=== PATIENT | male | born 1975 | race Caucasian/White ===

== ENCOUNTER → 2019-05-15 10:23 | Outpatient (BNVA) | payer MEDICAID, SELFPAY | PROVIDERS: PCP Nurse Practitioner Family; Visit Provider Nurse Practitioner | DX: M51.16 Intervertebral disc disorders with radiculopathy, lumbar region (principal); M25.511 Pain in right shoulder; F17.220 Nicotine dependence, chewing tobacco, uncomplicated; Z79.891 Long term (current) use of opiate analgesic | CPT/HCPCS: 99214 ==

== ENCOUNTER 2019-05-29 09:05 | Outpatient (CLI) | payer MEDICAID, SELFPAY ==
--- NOTE | 2019-05-29 09:23 | MR_ITS ---
WS: [id number] MRI LUMBAR SPINE NONCONTRAST TECHNIQUE: Sagittal T1, T2 and STIR imaging. Axial T1 and T2 imaging. CLINICAL INFORMATION: INCREASED BACK PAIN FINDINGS: Mild Lumbar curve. No acute compression. Slight retrolisthesis L2 on L3. No high-grade central canal stenosis. L1-L2: Normal. L2-L3: Slight retrolisthesis L2 on L3. Mild disc bulging with slight effacement of the ventral thecal sac. Narrowing of the subarticular recess bilaterally left greater than right. Mild facet arthropath y. Mild to moderate left and mild right foraminal narrowing. L3-L4: Mild annular bulging. Tiny right foraminal protrusion with mild right and no significant left foraminal narrowing. Moderate facet arthropathy. L4-L5: Mild disc bulging with slight effacement of ventral thecal sac. Narrowing of the subarticular recess bilaterally. Mild right greater than left foraminal narrowing. Moderate facet arthropathy. Lef t facet edema. L5-S1: L5 is partially sacralized. No significant spinal canal or foraminal narrowing. Mild facet art hropathy. Visualized pelvic bony structures: Normal. Paravertebral soft tissues: Normal. MR/MR lumbar spine wo con* [id number] IMPRESSION: 1. Mild lumbar curve. No acute compression. No high-grade central canal stenos is. 2. Slight retrolisthesis L2 on L3 with narrowing of the left greater than righ t subarticular recess. Recommend correlation for left L3 nerve root symptoms. 3. Small bilateral foraminal protrusions L2-3 with left greater than right for aminal narrowing. 4. Tiny right foraminal protrusion L3-4 slightly contacts the exiting right L3 nerve root. 5. Disc bulging L4-5 with slight effacement of ventral thecal sac and mild rig ht foraminal narrowing. 6. Asymmetric moderate left facet arthropathy L4-5 with a small facet effusion . 7. Small disc protrusions are visualized in the lower thoracic spine on the sc out imaging at T6-T7, T7-T8, and T8-T9. Additional small protrusions in the cer vical spine at C3-C4 C5-C6 and C6-C7.
--- NOTE | 2019-05-29 10:15 | XR_ITS ---
WS: [id number] LUMBAR SPINE FLEXION AND EXTENSION TECHNIQUE: 3 views of the lumbar spine: Lateral neutral, flexion, and extension views. CLINICAL INFORMATION: Assess stability COMPARISON: None. FINDINGS: 7 mm retrolisthesis L2 on L3 in the neutral position. This decreases on flexion to 4 mm. This returns to 6.3 mm in extension. Disc space narrowing worse L5-S1. Moderate facet arthropathy L5-S1. XR/XR lumbar spine f/e only [id number] IMPRESSION: Flexion instability at L2-3 described above.
== END 2019-05-29 09:06 | disposition home or self-care (01) ==
LOC: RADWPI 09:10
PROVIDERS: PCP Nurse Practitioner; Visit Provider Nurse Practitioner
DX: M53.2X6 Spinal instabilities, lumbar region (principal); M51.26 Other intervertebral disc displacement, lumbar region; M51.24 Other intervertebral disc displacement, thoracic region; M50.21 Other cervical disc displacement, high cervical region
CPT/HCPCS: 72120; 72148

== ENCOUNTER 2019-07-15 08:45 | Outpatient (CLI) | payer MEDICAID, SELFPAY ==
--- NOTE | 2019-07-15 08:51 | IR_ITS ---
WS: [id number] MYELOGRAM LUMBAR SPINE Fluoroscopic guided lumbar myelogram CLINICAL INFORMATION: Spondylolithesis COMPARISON: None. TECHNIQUE: The procedure, including risks, benefits, and complications, were discussed with the patie nt who agreed to proceed. A timeout was performed to confirm correct patient, procedure, and site. Using sterile technique, the patient was prepped and draped in the usual sterile fashion. After admin istration of local anesthesia using 1% preservative-free lidocaine and using fluoroscopic guidance, a 22-gauge spinal needle was advanced into the subarachnoid space at the right L4-5 level. Subsequentl y 13 cc of Omnipaque 240 was administered into the thecal sac. The needle was removed and hemostasis was achieved. Spot fluoroscopic images were obtained. FLUOROSCOPIC TIME: 0.5 minutes. Spot fluoroscopic images demonstrate 5 mm retrolisthesis L2 on L3. This is unchanged in flexion and d ecreases slightly in extension to 4.[address] myelogram report for additional detail. IR/IR myel[place] lumbar [id number] IMPRESSION: 1. Uncomplicated L4-5 lumbar myelogram. 2. 5 mm retrolisthesis L2 on L3 with mild instability in extension. 3. Please see CT myelogram report for additional anatomic detail.
--- NOTE | 2019-07-15 08:51 | CT_ITS ---
WS: [id number] CT LUMBAR SPINE TECHNIQUE: Contrast-enhanced CT of the lumbar spine with coronal and sagittal reformatted images. CLINICAL INFORMATION: Spondylolithesis COMPARISON: None. DLP: 2020.[address] scans at [facility] use at least one of these dose optimization techniques: automat ed exposure control; mA and/or kV adjustment per patient size (includes targeted exams where dose is matched to clinical indication); or iterative reconstruction. FINDINGS: Mild lumbar curve. No acute compression. No high-grade central canal stenosis. 5 mm retrolisthesis L2 on L3. L1-L2: Trace retrolisthesis L1 on L2. No significant disc bulging. Spinal canal and foramen are paten t. L2-L3: 5 mm retrolisthesis L2 on L3. Narrowing of the subarticular recess bilaterally. Small bilatera l foraminal protrusions with mild bilateral foraminal narrowing. Mild facet arthropathy. L3-L4: Right eccentric disc osteophyte foraminal protrusion with mild right foraminal narrowing. Encr oachment on the exiting right L3 nerve root. Spinal canal and foramen are patent. Mild facet arthropa thy. L4-L5: Mild disc bulging with a tiny shallow central protrusion. Contact of the traversing L5 nerve r oots bilaterally left greater than right. Moderate left facet arthropathy. Mild to moderate left and mild right foraminal narrowing. L5-S1: L5 is partially sacralized on the left. Spinal canal is patent. Foramen are patent. Visualized pelvic bony structures: Normal. Paravertebral soft tissues: Normal. CT/CT lumbar spine w con [id number] IMPRESSION: 1. Mild lumbar curve. No acute compression. 5 mm retrolisthesis L2 on L3. 2. Disc bulging L2-3 with narrowing of the subarticular recess bilaterally. Sm all bilateral foraminal protrusions with mild right greater than left foraminal narrowing. 3. Mild right L3-4 foraminal narrowing. 4. Shallow central protrusion L4-5 with impingement on the left greater than r ight subarticular recess. Recommend correlation left L5 nerve root symptoms. As ymmetric left L4-5 facet arthropathy with mild to moderate left and mild right foraminal narrowing. 5. L5 is partially sacralized on the left.
[2019-07-15] MEDS: iohexol 240 mg/mL 50 mL Btl INTRATHECA (09:40)
== END 2019-07-15 08:46 | disposition home or self-care (01) ==
LOC: RADWPI 08:48
PROVIDERS: PCP Nurse Practitioner Family; Visit Provider Licensed Practical Nurse
DX: M43.16 Spondylolisthesis, lumbar region (principal); M51.86 Other intervertebral disc disorders, lumbar region; M51.26 Other intervertebral disc displacement, lumbar region
CPT/HCPCS: 62304; 72120; 72132; J2001; Q9966

== ENCOUNTER → 2019-09-17 10:10 | Outpatient (BNVA) | payer MEDICAID, SELFPAY | PROVIDERS: PCP Nurse Practitioner Family; Visit Provider Anesthesiology | DX: M48.062 Spinal stenosis, lumbar region with neurogenic claudication (principal); M51.16 Intervertebral disc disorders with radiculopathy, lumbar region; M43.16 Spondylolisthesis, lumbar region; M51.17 Intervertebral disc disorders with radiculopathy, lumbosacral region; M25.511 Pain in right shoulder; Z79.891 Long term (current) use of opiate analgesic | CPT/HCPCS: 99214 ==

== ENCOUNTER → 2019-10-22 09:14 | Outpatient (BNVA) | payer MEDICAID, SELFPAY | PROVIDERS: PCP Nurse Practitioner Family; Visit Provider Anesthesiology | DX: M51.16 Intervertebral disc disorders with radiculopathy, lumbar region (principal); M51.17 Intervertebral disc disorders with radiculopathy, lumbosacral region; M43.16 Spondylolisthesis, lumbar region; M48.062 Spinal stenosis, lumbar region with neurogenic claudication; Z79.891 Long term (current) use of opiate analgesic | CPT/HCPCS: 62323; J1040; J3490 ==

== ENCOUNTER → 2019-11-17 09:24 | Outpatient (BNVA) | payer MEDICAID, SELFPAY | PROVIDERS: PCP Nurse Practitioner Family; Visit Provider Anesthesiology | DX: M51.16 Intervertebral disc disorders with radiculopathy, lumbar region (principal); M48.062 Spinal stenosis, lumbar region with neurogenic claudication; M43.16 Spondylolisthesis, lumbar region; M51.17 Intervertebral disc disorders with radiculopathy, lumbosacral region; Z72.0 Tobacco use; Z79.891 Long term (current) use of opiate analgesic | CPT/HCPCS: 99214 ==

== ENCOUNTER → 2019-11-20 10:29 | Outpatient (BNVA) | payer MEDICAID, SELFPAY | PROVIDERS: PCP Nurse Practitioner Family; Visit Provider Nurse Practitioner Family | DX: E78.5 Hyperlipidemia, unspecified (principal); I10 Essential (primary) hypertension | CPT/HCPCS: 80053; 80061 ==

== ENCOUNTER 2020-01-08 08:11 | Outpatient (CLI) | payer MEDICAID, SELFPAY ==
--- NOTE | 2020-01-08 08:16 | ECG_ITS ---
[facility] Test Date: 2020-01-08 Pat Name: Juan Morales Department: Room: Gender: Male Manager [employer]: : 1975 Requested By: Kalina Yanez Order Number: [id number] Leon MD: Sayra Price M.D. Interpretive Statements NAME OF STUDY: LEXISCAN SESTAMIBI STRESS TEST INDICATION: Chest discomfort; Atypical Chest Pain, PROCEDURE: At the baseline, the EKG revealed normal sinus rhythm with normal ST-T's. The baseline blood pressure was 136/88 mm Hg with a heart rate of 77 beats/min. Lexiscan was infused over a period of 20 seconds. A total of 0.4 milligrams of Lexiscan was infused. The stress phase was continued for a total of 5 minutes. Heart rate at the end of the stress phase was 85 with a blood pressure 146/82. The EKG at the peak infusion revealed nonspecific T wave changes and rare PVCs. Sestamibi was injected 20 seconds after the Lexiscan infusion. Blood pressure at the end of the recovery phase was 142/80 with a heart rate of 84 per minute. CONCLUSION: 1. Nonspecific EKG changes with the LexiScan infusion 2. No LexiScan induced chest pain or cardiac arrhythmia 3. Normal blood pressure and heart rate response 4. Sestamibi/sestamibi perfusion scan pending; see separate report. Electronically Signed On 01-08-2020 17:43:49 CDT by Sayra Price M.D. [id number]
--- NOTE | 2020-01-08 08:17 | NMCV_ITS ---
NM lul perf SPECT r/s* [id number] Juan Morales Age: 44 Gender: M : 1975 Exam Date: 01/08/2020 08:17 Ordering Phys: Kalina Yanez Technologist: SRIDEVI Mo Exam Location: [facility] Indications: CHEST DISCOMFORT STRESS TEST Please [facility] IMAGE PROTOCOL Rest/Stress 1 Lexiscan Day Radiopharmaceutical Dose (mCi) Administration Site Administered by Rest: Tc-99m 11.0 IV SRIDEVI Mo Sestamibi Stress:Tc-99m 32.9 IV BELKYS MoMT Sestamibi Rest: 08-Jan-2020 60 Discovery 630 Stress: 08-Jan-2020 30 Discovery 630 0.4mg Lexiscan. Images obtained in supine and prone position. SPECT RESULTS Technical Quality: Excellent Raw Data Analysis: Normal Image Corrections: No attenuation or motion correction applied Summed Stress Score: 3 Summed Rest Score: 4 Summed Difference Score: 1 PERFUSION FINDINGS Small sized perfusion abnormality of moderate severity of basal to mid inferior and apical panchal on rest images with improved tracer uptake in basal to mid inferior panchal on stress images. This likely represents attenuation artifact. FUNCTIONAL RESULTS (calculated via Gated SPECT) Stress Image LV EF (%): 60 Stress EDV (mL):119 TID: 1.08 Stress ESV (mL):48 FUNCTIONAL FINDINGS: The left ventricle is normal in size. Transient Ischemia Dilatation of 1.1. There is normal left ventricular systolic function. The left ventricular ejection fraction is normal with a value of 60%. There is normal left ventricular wall thickening. Normal end diastolic and end systolic volumes. IMPRESSIONS 1. Small sized perfusion abnormality of moderate severity of basal to mid inferior and apical panchal. This may represent attenuation artifact or old myocardial infarction. 2. Overall left ventricular systolic function is normal without regional wall motion abnormalities. 3. The left ventricular ejection fraction is normal with a value of 60%. 4. No coronary ischemia based on this study. Cora Alegria MD (Electronically Signed) Final Date: 09 January 2020 09:49 S
[2020-01-08 09:00] VITALS: BMI 31.7
[2020-01-08] MEDS: regadenoson 0.4 Mg/5 ml Syringe IVP (10:42)
[2020-01-08 11:00] VITALS: BP 142/80; PULSE 89
== END 2020-01-08 08:12 | disposition home or self-care (01) ==
LOC: CDL 08:14
PROVIDERS: PCP Nurse Practitioner Family; Visit Provider Nurse Practitioner Family
DX: R07.89 Other chest pain (principal)
CPT/HCPCS: 78452; 93017; A9500; J2785

== ENCOUNTER → 2020-01-21 13:24 | Outpatient (BNVA) | payer MEDICAID, SELFPAY | PROVIDERS: PCP Nurse Practitioner Family; Visit Provider Anesthesiology | DX: M48.062 Spinal stenosis, lumbar region with neurogenic claudication (principal); M51.16 Intervertebral disc disorders with radiculopathy, lumbar region; M51.17 Intervertebral disc disorders with radiculopathy, lumbosacral region; M43.16 Spondylolisthesis, lumbar region; Z79.891 Long term (current) use of opiate analgesic | CPT/HCPCS: 99213; 99214 ==

== ENCOUNTER → 2020-03-25 09:25 | Outpatient (BNVA) | payer MEDICAID, SELFPAY | PROVIDERS: PCP Nurse Practitioner Family; Visit Provider Anesthesiology | DX: M51.16 Intervertebral disc disorders with radiculopathy, lumbar region (principal); M51.17 Intervertebral disc disorders with radiculopathy, lumbosacral region; M48.062 Spinal stenosis, lumbar region with neurogenic claudication; M43.16 Spondylolisthesis, lumbar region; Z79.891 Long term (current) use of opiate analgesic | CPT/HCPCS: 99213; 99214 ==

== ENCOUNTER 2020-03-31 10:44 | Outpatient (RCR) | payer MEDICAID, SELFPAY | END 2020-04-14 23:59 | disposition home or self-care (01) | LOC: SPT 10:44 | PROVIDERS: PCP Nurse Practitioner Family; Referring Provider Nurse Practitioner Family; Visit Provider Nurse Practitioner Family | DX: R94.2 Abnormal results of pulmonary function studies (principal) | CPT/HCPCS: 97750 ==

== ENCOUNTER → 2020-05-26 10:39 | Outpatient (BNVA) | payer MEDICAID, SELFPAY | PROVIDERS: PCP Nurse Practitioner Family; Visit Provider Anesthesiology | DX: M51.16 Intervertebral disc disorders with radiculopathy, lumbar region (principal); M51.17 Intervertebral disc disorders with radiculopathy, lumbosacral region; M48.062 Spinal stenosis, lumbar region with neurogenic claudication; M43.16 Spondylolisthesis, lumbar region; F17.220 Nicotine dependence, chewing tobacco, uncomplicated; Z79.891 Long term (current) use of opiate analgesic | CPT/HCPCS: 99213 ==

== ENCOUNTER → 2020-07-19 13:59 | Outpatient (BNVA) | payer MEDICAID, SELFPAY | PROVIDERS: PCP Nurse Practitioner Family; Referring Provider Nurse Practitioner Family; Visit Provider Orthopaedic Surgery | DX: M48.062 Spinal stenosis, lumbar region with neurogenic claudication; M43.16 Spondylolisthesis, lumbar region; M51.17 Intervertebral disc disorders with radiculopathy, lumbosacral region; M51.16 Intervertebral disc disorders with radiculopathy, lumbar region | CPT/HCPCS: 72110 ==

== ENCOUNTER → 2020-07-21 10:24 | Outpatient (BNVA) | payer MEDICAID, SELFPAY | PROVIDERS: PCP Nurse Practitioner Family; Visit Provider Nurse Practitioner | DX: M51.16 Intervertebral disc disorders with radiculopathy, lumbar region (principal); M51.17 Intervertebral disc disorders with radiculopathy, lumbosacral region; M48.062 Spinal stenosis, lumbar region with neurogenic claudication; M43.16 Spondylolisthesis, lumbar region; M17.10 Unilateral primary osteoarthritis, unspecified knee; M25.30 Other instability, unspecified joint; F17.220 Nicotine dependence, chewing tobacco, uncomplicated; Z79.891 Long term (current) use of opiate analgesic; Z71.6 Tobacco abuse counseling | CPT/HCPCS: 99213; 99214 ==

== ENCOUNTER → 2020-08-18 08:08 | Outpatient (BNVA) | payer MEDICAID, SELFPAY | PROVIDERS: PCP Nurse Practitioner Family; Visit Provider Orthopaedic Surgery | DX: Z01.812 Encounter for preprocedural laboratory examination (principal); Z20.822 Contact with and (suspected) exposure to COVID-19 | CPT/HCPCS: 87635 ==

== ENCOUNTER 2020-09-07 10:04 | Day surgery (SDC) | payer MEDICAID, SELFPAY ==
[2020-09-06 11:48] VITALS: BMI 32.5
--- NOTE | 2020-09-06 12:10 | ANES.PREANE2 ---
Pre-Anesthetic Assessment Pre-Anesthetic Assessment: Height/Weight: Height 1.75 m Weight 99.79 kg Preop Diagnosis: Back pain Proposed Procedure: Operation Date: 09/07/20 12:15 Proposed Procedures p L4/5 5/s1 DEOMPRESSSION [id number] M43.16(Not Applicable) - Evan Brown DO Familial anesthetic complications: None Social: Social History: Tobacco (dips) and No alcohol Exam: Pre-Anes Outpt Exam: alert, oriented x 3, clear to auscultation bilaterally and regular rate & rhythm Airway: Cervical ROM: WNL MP: 3 Dentition: Full CV/HEM: CV/HEM: HTN Comments: Stress test CONCLUSION: 1. Nonspecific EKG changes with the LexiScan infusion 2. No LexiScan induced chest pain or cardiac arrhythmia 3. Normal blood pressure and heart rate response 4. Sestamibi/sestamibi perfusion scan pending; see separate repo Anesthetic Plan: ASA status: 2 Anesthesia: General Risk of > 500 ml blood loss (7ml/kg in children): No PFSH Anesthesia PFSH: Medical History Anxiety and depression Hypertension Intervertebral disc disorder with radiculopathy of lumbosacral region Joint instability Long-term current use of opiate analgesic Lumbar stenosis with neurogenic claudication Osteoarthritis, localized, knee Pain management contract signed Spondylolisthesis of lumbar region Tobacco abuse Surgical History Arthropathy of shoulder region Hx of arthroscopy of shoulder (~11/05/13) RIGHT Hx of left knee surgery Hx of shoulder surgery Family History Father Hypertension Heart disease Denies family history of Anesthesia complication Bleeding disorder Social History Smoking and tobacco status: current every day smoker smokeless tobacco Second hand smoke exposure: Yes Alcohol intake: never Marital status: service: No Current occupational status: unemployed History of recent travel: No Data Anesthesia Cardiac Studies: No Data to Display
[2020-09-06 13:08] LABS: Anion Gap 13.4 (5-19); Blood Urea Nitrogen 12 mg/dL (6-20); Calcium 9.1 mg/dL (8.5-10.5); Carbon Dioxide 29 mmol/L (22-29); Chloride 103 mmol/L (98-107); Glomerular Filtration Rate 123.1 mL/min (90-130); Glucose 96 mg/dL (65-115); Osmolality Calculated 292 mOsm/kg (285-295); Potassium 4.4 mmol/L (3.5-5.1); Sodium 141 mmol/L (136-145)
[2020-09-07] VITALS (7 sets, daily range): BP systolic 113–157; BP diastolic 80–90; PULSE 65–83; RESP 16–20; TEMP 36.1–36.6; O2SAT 94–97
--- NOTE | 2020-09-07 | SCC_ITS ---
Procedure Done: Laminectomy with partial facetectomy bilateral L5/S1 18.5 seconds of fluoroscopic guidance, for a cumulative dose of 3.59 mGy, was provided to Dr. Brown by the radiology department. C-arm images of the lumbar spine were saved for the patient's permanent record. [facility]ITAL[facility]
--- NOTE | 2020-09-07 10:20 | PM.HP ---
Providers/Chief Complaint Primary Care Provider: NEAL Hanks Chief Complaint: L4/5 5/s1 DEOMPRESSSION [id number] History of Present Illness This is a new 45 year old male patient here today for evaluation of his lower back pain. Onset: no known injury Duration: year Characteristics: sharp, aching dull Severity: moderate Location: lower back Radiating symptoms: into the legs Aggravating factors: sitting standing Alleviating factors: none Neuro deficits: Patient reoports numbness, tingling, weakness, Patient reports some incontinence of bowel/bladder, saddle anesthesia. Prior tx: chiropractor, physical therapy, pain management, injections, Review of Systems Narrative: General ROS: negative for weight changes, fever ENT ROS: negative for nasal congestion, drainage or bleeding, sore throat, dysphagia or ear pain Eyes: PERRL Hematological and Lymphatic ROS: negative for swollen glands or abnormal bleeding Endocrine ROS: negative for polyuria/polydpsia or new changes in weight Respiratory ROS: negative for cough, shortness of breath, or wheezing Cardiovascular ROS: negative for chest pain or dyspnea on exertion Gastrointestinal ROS: negative for reflux, abdominal pain, change in bowel habits, or black or bloody stools Musculoskeletal ROS: negative for back pain, neck pain, or joint pain or swelling except for current problem Neurological ROS: negative for TIA or stoke symptoms Skin: no rashes Medications/Allergies Home Medications Medication Instructions Recorded Confirmed Last Taken Type losartan 50 mg tablet 50 mg PO BID #60 tab 06/15/20 09/06/20 Unknown Rx oxycodone 15 mg tablet 15 mg PO TID PRN 30 Days #90 tab 07/21/20 09/06/20 Unknown Rx tizanidine 4 mg tablet 4 mg PO TID PRN #90 tab 07/21/20 09/06/20 Unknown Rx Allergies Allergy/AdvReac Type Severity Reaction Status Date / Time No Known Allergies Allergy Verified 07/21/20 10:43 PFSH Acute PFSH: Medical History Anxiety and depression Hypertension Intervertebral disc disorder with radiculopathy of lumbosacral region Joint instability Long-term current use of opiate analgesic Lumbar stenosis with neurogenic claudication Osteoarthritis, localized, knee Pain management contract signed Spondylolisthesis of lumbar region Tobacco abuse Surgical History Arthropathy of shoulder region Hx of arthroscopy of shoulder (~11/05/13) RIGHT Hx of left knee surgery Hx of shoulder surgery Family History Father Hypertension Heart disease Denies family history of Anesthesia complication Bleeding disorder Social History Smoking and tobacco status: current every day smoker smokeless tobacco Second hand smoke exposure: Yes Alcohol intake: never Marital status: service: No Current occupational status: unemployed History of recent travel: No Vitals/I&O/Wt Weight last 48 hrs Weight 220 lb Weight 220 lb Physical Exam Narrative: EXAM NARRATIVE: CONSTITUTIONAL: The patient is a normal appearing [] in no apparent distress. GENERAL: Patient in no acute distress. CARDIAC: Regular rate and rhythm. CHEST: Normal inspiratory effort, normal respiratory rate. ABDOMEN: Soft and nontender. SKIN: Clear, warm and intact. NEURO?PSYCH: The patient is alert and oriented to person, place and time. Sensorv /SILT Motor StrengthShoulder abduction C5 5/5Wrist extension C6 5/5Elbow extension C7 5/5Hand Dynamotor Repairer C8 5/5Finger abduction T15/5 Radial/ Ulnar/ Median n intact LowerSensory (SILT)Motor StrengthHin flexion L2/3Ant/inner thigh 5/5Hip adduction L2/3 5/5Knee extension L4 Lat thigh, 5/5Toe dorsiflexion L5 5/5Ankle dorsiflexion L5/ V19Fjlgiwj flexion S1 5/5 DTRBleeps 2+Triceps 2+Brachioradialis 2+Patellar 2+Achilles 2+ MUSCULOSKELETAL: [] UPPEREXTREMITIES: The patient had full active ROM in fingers, wrist, elbow, and shoulder. The patient demonstrated ability to fully flex/extend/abduct/adduct fingers, make ok sign, cross 2nd/3rd digits, extend 1st digit fully.. Radial pulse 2+, CR<2 seconds. LOWER EXTREMITIES: Pt has full, active ROM of toes, ankle, knee, and hip. Dorsalis pedis/posterior tibialis pulses 2+, CR<2 seconds. SPINE: Skin warm, dry, intact. Data : 09/06/20 12:15 A&P Assessment and plan (1) Lumbar stenosis with neurogenic claudication: L5/S1 MIS decompression Status: Chronic Attestations Medical Necessity Statement*: failed conservative tx Coding Level of Care Code Acute [facility] Diagnoses Lumbar stenosis with neurogenic claudication M48.062
--- NOTE | 2020-09-07 10:23 | W.PM.OPSUD ---
Surgery/Procedure H&P Update DATE OF PROCEDURE: September 07, 2020 DATE H&P PERFORMED: 09/07/20 PREOP DIAGNOSIS: lumbar stenosis PLANNED PROCEDURE: Operation Date: 09/07/20 12:15 Proposed Procedures p L4/5 5/s1 DEOMPRESSSION [id number] M43.16(Not Applicable) - Evan Brown DO
[2020-09-07] MEDS: sodium chloride 0.9% 1,000 ML 30 ML IV (10:25)
--- NOTE | 2020-09-07 10:36 | P.ANESUD_ITS ---
Pre-Anesthetic Update Pre-Anesthetic Assessment: Date of Surgery/Procedure: 09/07/20 Preop Ashia gnosis: lumbar stenosis Proposed Procedure: Operation Date: 09/07/20 12:15 Proposed Procedures p L4/5 5/s1 DEOMPRESSSION [id number] M43.16(Not Applicable) - Evan Brown, DO Any changes to Pre-Anesthetic Assessment?: No Last Intake: Intake Last Liquid Date 09/07/20 Last Liquid Time 21:00 Last Solid Date 09/06/20 Last Solid Time 21:00 Labs Last 48hrs: Laboratory Results - last 48 hr 09/06/20 12:15 Sodium 141 Potassium 4.4 Chloride 103 Carbon Dioxide 29 Anion Gap 13.4 BUN 12 Creatinine 0.7 GFR Calculation 123.1 Glucose 96 Calculated Osmolal ity 292 Calcium 9.1 Vitals: Pulse Rhythm 09/07/20 10:22 Pulse Strength 3+ Normal 09/07/20 10:22 Oxygen Delivery Me thod 09/07/20 10:22 Exam: Pre-Anes Outpt Exam: alert, oriented x 3, clear to auscultation bilaterally and regular rate & rhythm Cardiac Studies: No Data to Display
--- NOTE | 2020-09-07 11:48 | XR_ITS ---
WS: [id number] Exam: XR lumbar spine 2-3V* [id number] Date/Time of Exam: 09/07/2020 11:48 AM Reason For Exam: OR PICTURES A single limited lateral view of the lower lumbar spine is submitted for evaluation. The image demonstrates A surgical port positioned overlying the posterior soft tissues at the level o f the L5-S1 disc space. No other significant finding on this limited image.
--- NOTE | 2020-09-07 11:55 | PM.OP ---
Operative Report Date of procedure: September 07, 2020 Pre-op Diagnosis: lumbar stenosis L5/S1 Post-op diagnosis: same Procedure Done: Laminectomy with partial facetectomy bilateral L5/S1 Surgeon: Evan Brown Anesthesia: General Estimated blood loss (mL): 5 Condition: stable Disposition: PACU Procedure: Laminectomy with partial facetectomy bilateral L5/S1 Patient is brought to the operative suite. After undergoing anesthesia they are placed in the supine position. All areas of impingement are well padded. Patient is then prepped and draped in the normal sterile fashion. A skin incision is made over the L5/S1 level. This is confirmed under c-arm guidance. A series of dilators are passed and the tubular retractor is docked on the L5 lamina. A bovie is used to clear the soft tissue off the lamina and the L 5/S1 facet joint. A high speed kelli is then used to perform the laminectomy and take down the medial aspect of the L 5/S1 facet joint. A kerrison rongeure was then used to take down the remaining lamina and smooth the edged of the laminectomy up to the point where the ligamentum flavum attaches. Attention was then brought to the medial aspect of the facet joint. The remaining medial aspect of the superior and inferior aspect of the facet joint were taken down with the kerrison from the pedicle of L5 to S1. The facet joint had significant hypertrophy. Attention was then brought to the Ligamentum Flavum. The ligament was taken down from the lamina of L5 to S1 and out medially to the remaining facet joint. The ligament was thick. The dura was then exposed. The dura was in good repair. The L5 nerve was then traced with a curette out the L5/S1 foramen and found to be adequately decompressed. The S1 nerve was traced with a curette around the S1 pedicle. The lateral recess was opened with a kerrison helping to further decompress the S1 nerve. The tubular retractor was then tilted to the contralateral side. The bovie was used to take down the soft tissue on the spinous process. The high speed kelli was used to take down the spinous process and then the contralateral lamina of L5. The kerrison rongeur was used to take down the remaining lamina to the point where the ligamentum flavum attached and the ligamentum flavum was taken down from L5 to S1. The kerrison rongeur was then used to reach across and take down the medial aspect of the contralateral L5/S1 facet joint.The currete was used to trace the contralateral L5 nerve out the L5/S1 foramen to make sure it was decompressed adequatesly and the S1 was traced around the S1 pedicle. The lateral recess was opened further with the kerrison to ensure the S1 is adequately decompressed. Wound is then irrigated copiously with saline and surgiflo is used to stop any bleeding. The tubular retractor is removed and the wound is closed with vicryl and monocryl suture. Glue is then used to protect the wound. A sterile dressing is then placed. Patient was then placed in the supine position and transferred to the PACU in stable condition.
[2020-09-07] MEDS: HYDROcodone-acetaminophen 10-325 mg Tablet 1 TAB PO (13:01)
--- NOTE | 2020-09-07 13:51 | ANE.PACU2 ---
Inpatient post-anesthesia follow up: Airway intact: Yes Vital signs: Temperature 97.8 F Pulse Rate 71 Respiratory Rate 18 Blood Pressure 157/83 Pulse Oximetry 96 Oxygen Delivery Me thod Room Air Oxygen Flow Rate 6 Fraction of Inspir ed Oxygen Hydration adequate: Yes Nausea and vomiting: No Pain level: 2 Mental status: Baseline
== END 2020-09-07 13:24 | disposition home or self-care (01) ==
PROVIDERS: Anesthesiology; PCP Nurse Practitioner Family; Visit Provider Orthopaedic Surgery
PROC: (CPT 63005; principal; 2020-09-07 11:55)
DX: M48.062 Spinal stenosis, lumbar region with neurogenic claudication (principal); I10 Essential (primary) hypertension; M17.0 Bilateral primary osteoarthritis of knee; F17.210 Nicotine dependence, cigarettes, uncomplicated; F17.290 Nicotine dependence, other tobacco product, uncomplicated
CPT/HCPCS: 63047; 72100; 76000; 80048; J0690; J1100; J2250; J2370; J2405; J2704; J2710; J3010; J3490; J7030

== ENCOUNTER → 2020-09-28 09:14 | Outpatient (BNVA) | payer MEDICAID, SELFPAY | PROVIDERS: PCP Nurse Practitioner Family; Visit Provider Nurse Practitioner | DX: M51.17 Intervertebral disc disorders with radiculopathy, lumbosacral region (principal); M51.16 Intervertebral disc disorders with radiculopathy, lumbar region; M48.062 Spinal stenosis, lumbar region with neurogenic claudication; M43.16 Spondylolisthesis, lumbar region; M17.10 Unilateral primary osteoarthritis, unspecified knee; F17.220 Nicotine dependence, chewing tobacco, uncomplicated; Z79.891 Long term (current) use of opiate analgesic; Z71.6 Tobacco abuse counseling | CPT/HCPCS: 99213 ==

== ENCOUNTER → 2020-10-26 13:43 | Outpatient (BNVA) | payer MEDICAID, SELFPAY | PROVIDERS: PCP Nurse Practitioner Family; Visit Provider Nurse Practitioner Family | DX: Z20.822 Contact with and (suspected) exposure to COVID-19 (principal) | CPT/HCPCS: 87635 ==

== ENCOUNTER → 2020-11-30 08:53 | Outpatient (BNVA) | payer MEDICAID, SELFPAY | PROVIDERS: PCP Nurse Practitioner Family; Visit Provider Nurse Practitioner | DX: M51.16 Intervertebral disc disorders with radiculopathy, lumbar region (principal); M43.16 Spondylolisthesis, lumbar region; M48.062 Spinal stenosis, lumbar region with neurogenic claudication; M51.17 Intervertebral disc disorders with radiculopathy, lumbosacral region; M17.10 Unilateral primary osteoarthritis, unspecified knee; M19.90 Unspecified osteoarthritis, unspecified site; F17.210 Nicotine dependence, cigarettes, uncomplicated; Z71.6 Tobacco abuse counseling; Z79.891 Long term (current) use of opiate analgesic | CPT/HCPCS: 99214 ==

== ENCOUNTER → 2021-01-31 12:34 | Outpatient (BNVA) | payer MEDICAID, SELFPAY | PROVIDERS: PCP Nurse Practitioner Family; Visit Provider Anesthesiology | DX: M51.16 Intervertebral disc disorders with radiculopathy, lumbar region (principal); M48.062 Spinal stenosis, lumbar region with neurogenic claudication; M43.16 Spondylolisthesis, lumbar region; M51.17 Intervertebral disc disorders with radiculopathy, lumbosacral region; I10 Essential (primary) hypertension; Z79.891 Long term (current) use of opiate analgesic | CPT/HCPCS: 99213 ==

== ENCOUNTER → 2021-04-19 07:56 | Outpatient (BNVA) | payer MEDICAID, SELFPAY | PROVIDERS: PCP Nurse Practitioner Family; Visit Provider Anesthesiology | DX: M48.062 Spinal stenosis, lumbar region with neurogenic claudication (principal); M43.16 Spondylolisthesis, lumbar region; M51.16 Intervertebral disc disorders with radiculopathy, lumbar region; Z79.891 Long term (current) use of opiate analgesic | CPT/HCPCS: 99213 ==

== ENCOUNTER → 2021-12-11 09:57 | Outpatient (BNVA) | payer MEDICAID, SELFPAY | PROVIDERS: PCP Nurse Practitioner Family; Visit Provider Nurse Practitioner Family | DX: Z01.89 Encounter for other specified special examinations (principal); I10 Essential (primary) hypertension; M51.16 Intervertebral disc disorders with radiculopathy, lumbar region | CPT/HCPCS: 80053 ==

== ENCOUNTER → 2022-02-22 08:08 | Outpatient (BNVA) | payer MEDICAID, SELFPAY | PROVIDERS: PCP Nurse Practitioner Family; Visit Provider Orthopaedic Surgery | DX: M43.16 Spondylolisthesis, lumbar region (principal); M47.816 Spondylosis without myelopathy or radiculopathy, lumbar region | CPT/HCPCS: 72110 ==

== ENCOUNTER → 2022-03-27 10:17 | Outpatient (BNVA) | payer MEDICAID, SELFPAY | PROVIDERS: PCP Nurse Practitioner Family; Visit Provider Nurse Practitioner Family | DX: R53.83 Other fatigue (principal) | CPT/HCPCS: 84403; 84443; 85025 ==

== ENCOUNTER 2022-04-02 13:53 | Outpatient (CLI) | payer MEDICAID, SELFPAY ==
--- NOTE | 2022-04-02 14:12 | MR_ITS ---
WS: [id number] MRI LUMBAR SPINE NONCONTRAST TECHNIQUE: Sagittal T1, T2 and STIR imaging. Axial T1 and T2 imaging. CLINICAL INFORMATION: PAIN/NUMBNESS COMPARISON: MRI May 29, 2019 and myelogram July 15, 2019 FINDINGS: Counting performed from the craniocervical junction. L5 is partially sacralized on the LEFT with rudimentary disc space. Recommend plain film correlation prior surgical intervention. Slight re trolisthesis L1 on L2 and L2 on L3. No acute compression. L1-L2: Mild annular bulging. Mild facet arthropathy. Small LEFT foraminal protrusion slightly impinge s the exiting LEFT L1 nerve root. Small RIGHT foraminal protrusion with mild RIGHT foraminal narrowin g. Spinal canal is patent. L2-L3: Slight retrolisthesis. Mild annular bulging. Mild central canal stenosis. Slight impingement o n the traversing LEFT greater than RIGHT L3 nerve roots. Moderate LEFT and mild RIGHT foraminal narro wing. Mild facet arthropathy. L3-L4: Disc bulging with slight impingement traversing L4 nerve root in the subarticular recess. Smal l RIGHT foraminal protrusion with mild to moderate RIGHT foraminal narrowing. LEFT foramen is patent. Mild facet arthropathy. L4-L5: Mild annular bulging. Mild central canal stenosis. Impingement traversing L5 nerve roots bilat erally. Advanced facet arthropathy asymmetric to the LEFT. Mild to moderate RIGHT and mild LEFT purnima inal narrowing. L5-S1: L5 is partially sacralized on the LEFT. Spinal canal and foramen are patent. Small disc protrusions in the lower cervical and upper thoracic spine. Small protrusions in the mid a nd lower thoracic spine. Visualized pelvic bony structures: Normal. Paravertebral soft tissues: Normal. MR/MR lumbar spine wo con* [id number] IMPRESSION: 1. Counting performed from the craniocervical junction. L5 is partially sacral ized on the LEFT with rudimentary disc space. Recommend plain film correlation prior to surgical intervention. 2. Central canal stenosis L4-L5 appears slightly progressed compared to the pr ior studies. Disc bulging and central canal stenosis L2-L3 also appears slightl y progressed. No other significant interval changes. 3. Slight retrolisthesis L1 on L2 and L2 on L3. 4. Mild central canal stenosis L2-L3 with impingement on the LEFT subarticular recess and traversing LEFT L3 nerve root. 5. Disc bulging L3-L4 with impingement on the traversing RIGHT L4 nerve root. 6. Mild central canal stenosis L4-L5 with slight impingement traversing L5 ner ve roots bilaterally. 7. Small foraminal protrusions with moderate foraminal narrowing LEFT L2-L3, m ild to moderate RIGHT L3-L4, and RIGHT L4-L5 with contact of the exiting nerve roots at these levels respectively. 8. Advanced facet arthropathy LEFT L4-L5.
== END 2022-04-02 13:54 | disposition home or self-care (01) ==
LOC: RAD 13:54
PROVIDERS: PCP Nurse Practitioner Family; Visit Provider Orthopaedic Surgery
DX: R20.0 Anesthesia of skin (principal); M51.06 Intervertebral disc disorders with myelopathy, lumbar region; M51.16 Intervertebral disc disorders with radiculopathy, lumbar region; M48.061 Spinal stenosis, lumbar region without neurogenic claudication
CPT/HCPCS: 72148

== ENCOUNTER → 2022-09-24 10:16 | Outpatient (BNVA) | payer MEDICAID, SELFPAY | PROVIDERS: PCP Nurse Practitioner Family; Visit Provider Clinical Nurse Specialist Adult Health | DX: Z01.818 Encounter for other preprocedural examination (principal); M43.16 Spondylolisthesis, lumbar region; M51.17 Intervertebral disc disorders with radiculopathy, lumbosacral region; I10 Essential (primary) hypertension | CPT/HCPCS: 80048; 85025 ==

== ENCOUNTER 2022-10-17 05:23 | Day surgery (SDC) | payer MEDICARE, MEDICAID, SELFPAY ==
[2022-10-15 09:40] VITALS: BMI 30.4
[2022-10-17] VITALS (11 sets, daily range): BP systolic 122–178; BP diastolic 72–106; PULSE 58–85; RESP 16–20; TEMP 36.1–36.4; O2SAT 92–97
--- NOTE | 2022-10-17 | XR_ITS ---
WS: [id number] XR lumbar spine 2-3V* [id number] REASON FOR EXAM: OR pic, decompression FINDINGS: Surgical device overlies the L2-L3 disc space on the right. XR/XR lumbar spine 2-3V* [id number] IMPRESSION: Lumbar localization in surgery as above.
[2022-10-17] MEDS: sodium chloride 0.9% 1,000 ML 30 ML IV (06:19)
--- NOTE | 2022-10-17 06:37 | W.PM.OPSUD ---
Surgery/Procedure H&P Update DATE OF PROCEDURE: October 17, 2022 DATE H&P PERFORMED: 09/20/22 CHANGES TO PREVIOUS DOCUMENTATION: Patient insurance denied the fusion aspect of the procedure. At this point or just doing a right L2-3 minimally invasive decompression. PREOP DIAGNOSIS: DDD lumbar, retrolisthesis L2-3, lumbar radiculopathy PLANNED PROCEDURE: Operation Date: 10/17/22 07:00 Proposed Procedures p Lumbar Spine Decompression:[id number],M51.17(Not Applicable) - Evan Brown DO
[2022-10-17] MEDS: ceFAZolin 2,000 MG in sodium chloride 0.9% (plus) 50 ML 100 MG IV (06:56)
[2022-10-17] MEDS: lidocaine-epi 1% 20 mL INJ 10 ML INJECTION (07:40)
[2022-10-17] MEDS: vancomycin 1,000 MG SDV 1000 MG XX (07:48)
--- NOTE | 2022-10-17 08:05 | P.OP_ITS ---
Operative Report Date of procedure: October 17, 2022 Pre-op diagnosis: Preop Diagnosis DDD lumbar, retrolisthesis L2-3, lumbar radiculopathy Post-op diagnosis: same Procedure done: L2-3 laminectomy with partial facetectomy Surgeon: Evan Brown Lapping Machine Operator: Shahid Dueñas Lapping Machine Operator: The assistant infant toddler teacher, Shahid Dueñas, PAC was needed for his expertise under the microscope. He was important and necessary throughout the procedure to complete in a safe and timely manner. He assisted with patient positioning prepping and draping tissue retraction suctioning of the operative field protection of the dural sac and tissue closure Estimated blood loss (mL): 5 Procedure: L2-3 laminectomy with partial facetectomy Patient is brought to the operative suite. After undergoing anesthesia they are placed in the prone position. All areas of impingement are well padded. Patient is then prepped and draped in the normal sterile fashion. A skin incision is made over the L2/3 level. This is confirmed under c-arm guidance. A series of dilators are passed and the tubular retractor is docked on the L2 lamina. A bovie is used to clear the soft tissue off the lamina and the L 2/3 facet joint. A high speed kelli is then used to perform the laminectomy and take down the medial aspect of the L 2/3 facet joint. A kerrison rongeure was then used to take down the remaining lamina and smooth the edge of the laminectomy up to the point where the ligamentum flavum attaches. Attention was then brought to the medial aspect of the facet joint. The remaining medial aspect of the superior and inferior aspect of the facet joint were taken down with the kerrison from the pedicle of L2 to L 3. The facet joint had significant hypertrophy. Attention was then brought to the Ligamentum Flavum. The ligament was taken down from the lamina of L2 to L3 and out medially to the remaining facet joint. The ligament was thick. The dura was then exposed. The dura was in good repair. The L2 nerve was then traced with a curette out the L2/3 foramen and found to be adequately decompressed. The L3 nerve was traced with a curette around the L3 pedicle. The lateral recess was opened with a kerrison helping to further decompress the L3 nerve. Wound is then irrigated copiously with saline and surgiflo is used to stop any bleeding. The tubular retractor is removed and the wound is closed with vicryl and monocryl suture. Glue is then used to protect the wound. A sterile dressing is then placed. Patient was then placed in the supine position and transferred to the PACU in stable condition.
[2022-10-17] MEDS: fentaNYL 50 mcg/mL INJ 2mL 100 MCG IVP (08:17)
[2022-10-17] MEDS: oxyCODONE 5 mg IR Tab/Cap 10 MG PO (09:10)
--- NOTE | 2022-10-17 09:11 | ANES.PREANE2 ---
Pre-Anesthetic Assessment Height/Weight: Height 1.75 m Weight 93.44 kg Temp Pulse Resp BP Pulse Ox O2 Del Method O2 Flow Rate 97 F L 59 L 17 122/81 92 Room Air 6 10/17/22 08:47 10/17/22 08:47 10/17/22 08:47 10/17/22 08:47 10/17/22 08:47 10/17/22 08:47 10/17/22 08:03 Preop Diagnosis: DDD lumbar, retrolisthesis L2-3, lumbar radiculopathy Operation Date: 10/17/22 07:00 Proposed Procedures p Lumbar Spine Decompression:[id number],M51.17(Not Applicable) - Evan Brown, DO Familial anesthetic complications: none Was Beta Chase taken within 24 hours: N/A Was Clonidine taken within 24 hours: N/A Last intake: Intake Last Liquid Date 10/16/22 Last Liquid Time 19:00 Last Solid Date 10/16/22 Last Solid Time 17:00 Social Tobacco and No alcohol Exam alert, oriented x 3, clear to auscultation bilaterally and regular rate & rhythm Airway Submandibular: within normal limits Cervical ROM: within normal limits Mallampati: Class II Dentition: full Pulmonary Chronic Obstructive Pulmonary Disease CV/HEM Hypertension Musc/skel Lower Back Pain and Osteoarthritis/DJD Neuropsych chronic pain/opioid Anesthetic Plan ASA status: 3 Anesthesia: General Medications/Allergies Home Medications Medication Instructions Recorded Confirmed Last Taken Type oxycodone 10 mg tablet 10 mg PO DAILY PRN pain 30 days 03/11/22 10/15/22 10/17/22 Rx #30 tabs losartan 50 mg tablet 50 mg PO BID #60 tabs 04/04/22 10/15/22 10/16/22 Rx diclofenac sodium 75 mg See Rx Instructions .Route 10/05/22 10/15/22 10/01/22 Rx tablet,delayed release .COMPLEX #60 tabs oxycodone 10 mg tablet 10 mg PO Q4H PRN pain 7 days #40 10/17/22 Unknown Rx tabs Allergies Allergy/AdvReac Type Severity Reaction Status Date / Time No Known Allergies Allergy Verified 09/24/22 09:53 Current Medications Generic Name Dose Route Start Last Admin Trade Name Freq PRN Reason Stop Dose Admin Sodium Chloride 1,000 mls @ 30 mls/hr 10/17/22 05:45 10/17/22 06:19 Sodium Chloride 0.9% IV 10/18/22 05:44 30 mls/hr .Q24H CIRILO Administration PFSH Anesthesia Medical History Anxiety and depression Hypertension Intervertebral disc disorder with radiculopathy of lumbosacral region Joint instability Long-term current use of opiate analgesic Lumbar stenosis with neurogenic claudication Osteoarthritis, localized, knee Pain management contract signed Spondylolisthesis of lumbar region Tobacco abuse Surgical History Arthropathy of shoulder region History of back surgery 09/07/20 Dr. Brown done laminectomy with facetectomy bilateral L5/S1 Hx of arthroscopy of shoulder (~11/05/13) RIGHT Hx of left knee surgery Hx of shoulder surgery Family History Father Hypertension Heart disease Denies family history of Anesthesia complication Bleeding disorder Social History Smoking and tobacco status: never smoked Second hand smoke exposure: No Alcohol intake: never Substance/Drug Use: never Marital status: service: No Current occupational status: unemployed Data Anesthesia Cardiac Studies: Sestamibi Stress Test (Cardiology) 01/08/20
--- NOTE | 2022-10-17 16:40 | ANE.PACU2 ---
Inpatient post-anesthesia follow up: Airway intact: Yes Vital signs: Temperature 97 F Pulse Rate 58 Respiratory Rate 17 Blood Pressure 134/76 Pulse Oximetry 94 Oxygen Delivery Me thod Room Air Oxygen Flow Rate 6 Fraction of Inspir ed Oxygen Hydration adequate: Yes Nausea and vomiting: No Pain level: 3 Mental status: Baseline
== END 2022-10-17 09:25 | disposition home or self-care (01) ==
PROVIDERS: PCP Nurse Practitioner Family; Visit Provider Orthopaedic Surgery
PROC: (CPT 63005; principal; 2022-10-17 07:00)
DX: M51.16 Intervertebral disc disorders with radiculopathy, lumbar region (principal); M43.16 Spondylolisthesis, lumbar region; J44.9 Chronic obstructive pulmonary disease, unspecified; I10 Essential (primary) hypertension; Z87.891 Personal history of nicotine dependence
CPT/HCPCS: 63047; 72100; 76000; J0690; J1100; J1170; J2405; J2704; J2710; J3010; J3370; J3490; J7030

== ENCOUNTER → 2022-11-14 11:00 | Outpatient (BNVA) | payer MEDICARE, MEDICAID, SELFPAY | PROVIDERS: PCP Nurse Practitioner Family; Visit Provider Physician Assistant | DX: Z47.89 Encounter for other orthopedic aftercare (principal) | CPT/HCPCS: 72100 ==

== ENCOUNTER → 2022-11-29 13:26 | Outpatient (BNVA) | payer MEDICARE, MEDICAID, SELFPAY | PROVIDERS: PCP Nurse Practitioner Family; Visit Provider Orthopaedic Surgery | DX: Z47.89 Encounter for other orthopedic aftercare (principal) | CPT/HCPCS: 99024 ==

== ENCOUNTER 2023-04-21 10:00 | Emergency (ER) | payer OTHER, MEDICAID, SELFPAY ==
[2023-04-21 10:04] VITALS: BP 201/134; PULSE 76; RESP 14; TEMP 36.8; O2SAT 98; BMI 31.4
--- NOTE | 2023-04-21 10:10 | ED_ITS ---
HPI - Eye Problem General: Chief complaint: Eye Problems Stated complaint: eye pain Time Seen by Provider: 04/21/23 10:03 Source: patient Mode of arrival: ambulatory Limitations: no limitations History of Present Illness: 48-year-old male who states that he was using a plasma cutter overnight states that he believes he has had a Hiberix he has bilateral severe eye pain this morning. States much worse with bright lights denies any vision changes denies any known foreign bodies. Associated symptoms: Denies fever(s), headache(s), nausea, neck pain or vomiting Review of Systems Const: Denies: fever(s), chills, body aches or change in appetite Eyes: Reports: eye discomfort; Denies: blurry vision ENMT: Denies: throat pain or dental pain Card: Denies: chest pain Resp: Denies: dyspnea GI: Denies: abdominal pain, nausea, vomiting or diarrhea : Denies: dysuria Musc: Denies: neck pain or back pain Skin/Breast: Denies: rash Neuro: Denies: headache(s) PFSH ED PFSH: Medical History Anxiety and depression Hypertension Intervertebral disc disorder with radiculopathy of lumbosacral region Joint instability Long-term current use of opiate analgesic Lumbar stenosis with neurogenic claudication Osteoarthritis, localized, knee Pain management contract signed Spondylolisthesis of lumbar region Tobacco abuse Surgical History Arthropathy of shoulder region History of back surgery 09/07/20 Dr. Brown done laminectomy with facetectomy bilateral L5/S1 Hx of arthroscopy of shoulder (~11/05/13) RIGHT Hx of left knee surgery Hx of shoulder surgery Family History Father Hypertension Heart disease Denies family history of Anesthesia complication Bleeding disorder Social History Smoking and tobacco/nicotine status: never used tobacco/nicotine Second hand smoke exposure: No Alcohol intake: never Substance/Drug Use: never Marital status: service: No Current occupational status: unemployed Physical Exam Const: COMMON NORMALS: no acute distress, patient oriented x3 and healthy appearing HENMT: COMMON NORMALS: normocephalic and atraumatic HEAD & SCALP: normocephalic and atraumatic Eye: COMMON NORMALS: Equal, round and reactive pupils present and EOMs intact bilaterally PUPIL: Yes Equal, round and reactive pupils present OTHER: Erythema to bilateral eyes no foreign body no ulcer or abrasion under fluorescein Neck/C-Spine: COMMON NORMALS: full ROM and supple Chest: COMMONS NORMALS: normal inspection of the chest Resp: COMMON NORMALS: normal respiratory effort Cardio: COMMON NORMALS: regular rate, regular rhythm and No murmurs present (Cardio) RATE: regular rate RHYTHM: regular rhythm Extremity: COMMON NORMALS: normal to inspection and full ROM Neuro: COMMON NORMALS: patient oriented x3, moves all extremities and no focal motor deficits Psych: COMMON NORMALS: mental status grossly normal, Normal thought process present and cooperative THOUGHT PROCESS: Normal thought process present Skin: COMMON NORMALS: no rashes or lesions noted and no wounds GENERAL SKIN EXAM: no rashes or lesions noted Course Vital Signs: Vital signs: Vital Signs Temperature 98.2 F 04/21/23 10:04 Pulse Rate 76 04/21/23 10:04 Respiratory Rate 14 04/21/23 10:04 Blood Pressure 201/134 04/21/23 10:04 Pulse Oximetry 98 04/21/23 10:04 Oxygen Delivery Me thod Room Air 04/21/23 10:04 MDM - Eye Problem Medical Decision Making Patient presents here with UV keratitis we will place him on erythromycin along with pain meds he is stable for discharge follow-up PCP return if worsening Medical Records I reviewed the patient's medical records. No radiology studies performed this visit Discharge Plan Discharge Patient Disposition: Home Clinical Impression: UV keratitis Qualifiers: Laterality: bilateral Qualified Code(s): H16.133 - Photokeratitis, bilateral Condition: Stable Prescriptions: New hydrocodone-acetaminophen 5-325 mg tablet 1 tab PO Q6H PRN (Reason: pain) Qty: 14 0RF erythromycin 5 mg/gram (0.5 %) ointment 1 applic ophthalmic (eye) Q6H 5 Days Qty: 3.5 0RF No Action losartan 50 mg tablet 50 mg PO BID Qty: 60 1RF prednisone 20 mg tablet 20 mg PO DAILY 7 Days Qty: 15 0RF Rx Instructions: 60mg daily for 3 days, 40mg daily for 2 days, 20 mg daily for 2 days. oxycodone 10 mg tablet 10 mg PO DAILY PRN (Reason: pain) 14 Days Qty: 14 0RF celecoxib [Celebrex] 200 mg capsule 200 mg PO BID Qty: 30 0RF diclofenac sodium 75 mg tablet,delayed release (DR/EC) See Rx Instructions .ROUTE .COMPLEX Qty: 60 0RF Dose Instruction: Take 1 tablet by mouth twice daily with food Rx Instructions: Take 1 tablet by mouth twice daily with food Discharge Orders: Discharge ED (Routine); Ordered 04/21/23 Ordered By: Skinny Calvin Referrals: Kalina Yanez FNP [Primary Care Provider] - 1-3 days Discharge Diet: Advance as tolerated Discharge Activity: Resume usual activity Patient Instructions: Keratitis (ED) Coding Level of Care Code ED [address] Reporter for Krishna Napoles
[2023-04-21] MEDS: tetracaine 0.5% Op Soln 4 mL Btl 1 DROP EYE-BOTH (10:25)
[2023-04-21] MEDS: HYDROcodone-acetaminophen 5-325 mg Tablet 1 TAB PO (10:25)
[2023-04-21] MEDS: fluorescein 1 mg Strip EYE-BOTH (10:29)
== END 2023-04-21 10:33 | disposition home or self-care (01) ==
PROVIDERS: Emergency Provider Emergency Medicine; PCP Nurse Practitioner Family
DX: H16.133 Photokeratitis, bilateral (principal); I10 Essential (primary) hypertension
CPT/HCPCS: 99283

== ENCOUNTER 2023-08-08 12:55 | Emergency (ER) | payer OTHER, MEDICAID, SELFPAY ==
[2023-08-08 12:58] VITALS: BP 188/111; PULSE 120; O2SAT 90; BMI 28.0
--- NOTE | 2023-08-08 13:00 | PC.NURSE ---
Pt on bedside youth nutritional monitor
--- NOTE | 2023-08-08 13:03 | ECG_ITS ---
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 Measurements Intervals [place] Rate: 106 P: 53 MN: 136 QRS: -9 QRSD: 94 T: 68 QT: 365 QTc: 486 Interpretive Statements SINUS TACHYCARDIA POSSIBLE LEFT VENTRICULAR HYPERTROPHY [VOLTAGE CRITERIA PLUS LAE OR QRS WIDENING] NONSPECIFIC T-WAVE ABNORMALITY No previous ECG available for comparison Electronically Signed On 08-08-2023 15:10:32 CDT by Beck Barragan M.D. [email or web address]
[2023-08-08 13:16] VITALS: TEMP 36.5
--- NOTE | 2023-08-08 13:16 | PC.NURSE ---
Pt on bedside secured entrance monitor
[2023-08-08 13:21] LABS: Basophils # 0.1 10^3/uL (0.0-0.1); Basophils % 0.6 %; Eosinophils # 0.2 10^3/uL (0.0-0.8); Eosinophils % 1.8 %; Hematocrit 40.5 % (37-53); Lymphocytes % 22.7 %; Mean Corpuscular HGB Conc 32.8 g/dL (30-55); Mean Corpuscular Hemoglobin 29.8 pg (27-33); Mean Corpuscular Volume 90.6 fl (82-101); Mean Platelet Volume 10.7 fL (7.4-10.4); Monocytes # 0.6 10^3/uL (0.2-0.9); Neutrophils # 6.06 10^3/uL (1.8-7.7); Neutrophils % 67.6 %; Nucleated Red Blood Cells % 0 %; Platelet Count 350 10^3/cmm (157-399); Red Blood Count 4.47 10^6/uL (3.85-5.65); Red Cell Distribution Width 13.2 % (12.1-15.1); White Blood Count 8.96 10^3/uL (3.29-11.43)
--- NOTE | 2023-08-08 13:33 | W.ED.AMS ---
HPI - Altered Mental Status General: Chief Complaint: Altered Mental Status Stated Complaint: AMS Time Seen by Provider: 08/08/23 12:59 History of Present Illness: 48-year-old man with history of hypertension, tobacco dependence and long-term opiate use who presents to the emergency room after taking some sort of CBD this morning which has caused him to have a great deal of anxiety. He is requesting that his stomach be pumped. I explained that that is not an appropriate treatment at this time. He expresses understanding. He is quite anxious. He says he also thinks he took another wrong medication this morning. He has no focal motor deficits. He does not appear altered. No chest pain. No shortness of breath. No abdominal pain. He is little bit tachycardic on presentation. Review of Systems Narrative: Constitutional symptoms: Negative except as documented in HPI. Skin symptoms: Negative except as documented in HPI. Eye symptoms: Negative except as documented in HPI. ENMT symptoms: Negative except as documented in HPI. Respiratory symptoms: Negative except as documented in HPI. Cardiovascular symptoms: Negative except as documented in HPI. Gastrointestinal symptoms: Negative except as documented in HPI. Genitourinary symptoms: Negative except as documented in HPI. Musculoskeletal symptoms: Negative except as documented in HPI. Neurologic symptoms: Negative except as documented in HPI. Psychiatric symptoms: Negative except as documented in HPI. Endocrine symptoms: Negative except as documented in HPI. [facility] ED PFSH: Medical History Anxiety and depression Hypertension Intervertebral disc disorder with radiculopathy of lumbosacral region Joint instability Long-term current use of opiate analgesic Lumbar stenosis with neurogenic claudication Osteoarthritis, localized, knee Pain management contract signed Spondylolisthesis of lumbar region Tobacco abuse Surgical History Arthropathy of shoulder region History of back surgery 09/07/20 Dr. Brown done laminectomy with facetectomy bilateral L5/S1 Hx of arthroscopy of shoulder (~11/05/13) RIGHT Hx of left knee surgery Hx of shoulder surgery Family History Father Hypertension Heart disease Denies family history of Anesthesia complication Bleeding disorder Social History (Reviewed 11/29/22 @ 13:55 by JOSHUA Cartagena Smoking and tobacco/nicotine status: never used tobacco/nicotine Second hand smoke exposure: No Alcohol intake: never Substance/Drug Use: never Marital status: service: No Current occupational status: unemployed Physical Exam Narrative: General: Alert, no acute distress. Skin: Warm, dry. Head: Normocephalic, atraumatic. Neck: Supple, trachea midline. Eye: Extraocular movements are intact. Ears, nose, mouth and throat: mucosa moist. Cardiovascular: Regular, tachycardic, Normal peripheral perfusion. Respiratory: Lungs are clear to auscultation, respirations are non-labored, breath sounds are equal, Symmetrical chest wall expansion. Gastrointestinal: Soft, Nontender, Non distended, Normal bowel sounds. Musculoskeletal: Normal ROM, no deformity. Neurological: Alert and oriented, No focal neurological deficit observed. Psychiatric: Cooperative, patient is quite anxious. Course Vital Signs: Vital signs: Vital Signs Temperature 97.7 F 08/08/23 13:16 Pulse Rate 120 H 08/08/23 12:58 Blood Pressure 188/111 08/08/23 12:58 Pulse Oximetry 90 08/08/23 12:58 Oxygen Delivery Me thod Room Air 08/08/23 12:58 MDM - Altered Mental Status Medical Decision Making Medical decision making: Differential diagnosis including but not limited to and based on the above HPI, review of systems and physical exam: Patient seems to be having an anxiety attack, likely related to CBD/THC. Getting an EKG and basic lab work along with drug screen, salicylate, Tylenol levels. And an alcohol level. Orders placed to evaluate differential diagnosis based on the above differential, HPI and physical exam Lab Review: Laboratory results were reviewed and interpreted by myself the emergency room physician. Lab work is fairly unremarkable. No leukocytosis. BUN and creatinine are 17 and 1. Urinalysis is positive for marijuana. Otherwise drug screen is negative. EKG: Time 1326 rate 106. Sinus tachycardia no ST-T changes, no ectopy, normal CT & QRS intervals, This was reviewed and interpreted by myself the ER physician at 1330 I reviewed the patient's medical record. Reexamination: Patient is somewhat improved. Anxiety has improved some. Heart rate has come down to around 100. Lab Data 08/08/23 13:11 08/08/23 13:11 Laboratory Results WBC 8.96 10^3/uL (3.29-11.43) 08/08/23 13:11 RBC 4.47 10^6/uL (3.85-5.65) 08/08/23 13:11 Hgb 13.30 g/dL (11.27-16.99) 08/08/23 13:11 Hct 40.5 % (37-53) 08/08/23 13:11 MCV 90.6 fl (82-101) 08/08/23 13:11 MCH 29.8 pg (27-33) 08/08/23 13:11 MCHC 32.8 g/dL (30-55) 08/08/23 13:11 RDW 13.2 % (12.1-15.1) 08/08/23 13:11 Plt Count 350 10^3/cmm (157-399) 08/08/23 13:11 MPV 10.7 fL (7.4-10.4) H 08/08/23 13:11 Neut % (Auto) 67.6 % 08/08/23 13:11 Lymph % (Auto) 22.7 % 08/08/23 13:11 Fergus % (Auto) 7.0 % 08/08/23 13:11 Eos % (Auto) 1.8 % 08/08/23 13:11 Baso % (Auto) 0.6 % 08/08/23 13:11 Neut # (Auto) 6.06 10^3/uL (1.8-7.7) 08/08/23 13:11 Lymph # (Auto) 2.0 10^3/uL (0.8-4.8) 08/08/23 13:11 Fergus # (Auto) 0.6 10^3/uL (0.2-0.9) 08/08/23 13:11 Eos # (Auto) 0.2 10^3/uL (0.0-0.8) 08/08/23 13:11 Baso # (Auto) 0.1 10^3/uL (0.0-0.1) 08/08/23 13:11 Nucleated RBC % (auto) 0 % 08/08/23 13:11 Nucleated RBCs # 0.0 /100WBC 08/08/23 13:11 Sodium 141 mmol/L (136-145) 08/08/23 13:11 Potassium 3.2 mmol/L (3.5-5.1) L 08/08/23 13:11 Chloride 103 mmol/L (98-107) 08/08/23 13:11 Carbon Dioxide 29 mmol/L (22-29) 08/08/23 13:11 Anion Gap 12.2 (5-19) 08/08/23 13:11 BUN 17 mg/dL (6-20) 08/08/23 13:11 Creatinine 1.0 mg/dL (0.7-1.2) 08/08/23 13:11 GFR Calculation 80.4 mL/min (90-130) L 08/08/23 13:11 Glucose 157 mg/dL (65-115) H 08/08/23 13:11 Calculated Osmolality 297 mOsm/kg (285-295) H 08/08/23 13:11 Calcium 8.6 mg/dL (8.5-10.5) 08/08/23 13:11 Total Bilirubin 0.3 mg/dL (0.15-1.2) 08/08/23 13:11 AST 20 U/L (0-40) 08/08/23 13:11 ALT 28 U/L (0-41) 08/08/23 13:11 Alkaline Phosphatase 87 U/L (40-130) 08/08/23 13:11 Total Protein 7.2 g/dL (6.6-8.7) 08/08/23 13:11 Albumin 4.2 g/dL (3.5-5.2) 08/08/23 13:11 Globulin 3.0 g/dL (1.3-4.6) 08/08/23 13:11 Urine Color Yellow (Yellow) 08/08/23 13:40 Urine Appearance Clear (CLEAR) 08/08/23 13:40 Urine pH 6 (5-7) 08/08/23 13:40 Ur Specific Weather[place] 1.020 (1.005-1.030) 08/08/23 13:40 Urine Protein Neg (Negative) 08/08/23 13:40 Urine Glucose (UA) Norm (Normal) 08/08/23 13:40 Urine Ketones Negative (Negative) 08/08/23 13:40 Urine Blood Neg (Negative) 08/08/23 13:40 Urine Nitrate Negative (Negative) 08/08/23 13:40 Urine Bilirubin 1+ (Negative) H 08/08/23 13:40 Urine Urobilinogen Neg mg/dL (Negative) 08/08/23 13:40 Ur Leukocyte Esterase Negative (Negative) 08/08/23 13:40 Urine RBC 0-4 /hpf (0-2) H 08/08/23 13:40 Urine WBC 0-4 /hpf (0-5) H 08/08/23 13:40 Ur Squamous Epith Cells 0-4 /hpf (0-5) H 08/08/23 13:40 Amorphous Sediment Not Reportable 08/08/23 13:40 Urine Bacteria Trace /hpf (NONE) 08/08/23 13:40 Hyaline Casts 10-15 /lpf H 08/08/23 13:40 Urine Mucus 2+ /hpf 08/08/23 13:40 Salicylates 0.4 mg/dL (3-10) L 08/08/23 13:11 Urine Opiates Screen Negative ng/mL (Negative) 08/08/23 13:40 Acetaminophen < 5.0 ug/mL (10-30) L 08/08/23 13:11 Ur Barbiturates Screen Negative ng/mL (Negative) 08/08/23 13:40 Ur Phencyclidine Scrn Negative ng/mL (Negative) 08/08/23 13:40 Ur Amphetamines Screen Negative ng/mL (Negative) 08/08/23 13:40 U Benzodiazepines Scrn Negative ng/mL (Negative) 08/08/23 13:40 Urine Cocaine Screen Negative ng/mL (Negative) 08/08/23 13:40 U Marijuana (THC) Screen Positive ng/mL (Negative) H 08/08/23 13:40 Ethyl Alcohol < 10 mg/dL (0-10) 08/08/23 13:11 No radiology studies performed this visit Other Data Assessment and plan: Panic attack Dehydration CBD ingestion -Normal saline bolus, 1 mg IV Ativan - Discharged home - Discussed plan with patient. Answered any questions. - Evaluation and treatment of this problem were appropriate in the emergency setting. Discharge Plan Discharge Patient Disposition: Home Clinical Impression: Panic attack, Dehydration, Adverse drug reaction Condition: Stable Prescriptions: No Action sildenafil 50 mg tablet See Rx Instructions .ROUTE .COMPLEX Rx Instructions: as directed tizanidine 4 mg tablet 4 mg PO DAILY PRN (Reason: Muscle Spasm) buprenorphine-naloxone 8-2 mg tablet, sublingual 1 tab SUBLINGUAL DAILY bupropion HCl 150 mg tablet extended release 24 hr 150 mg PO QAM diclofenac sodium 75 mg tablet,delayed release (DR/EC) 75 mg PO BID Discharge Orders: Discharge ED (Routine); Ordered 08/08/23 Ordered By: Tigist Dsouza Discharge Diet: Usual diet Discharge Activity: Increase activity as tolerated Patient Instructions: Panic Attack (ED) Activity Restrictions/Additional Instructions: You have been screened and evaluated and felt safe for discharge. Health conditions do change or evolve sometimes and as such it is important that you follow up with your Primary Doctor to be re checked, 3-5 days is a general good time frame for follow up. You are always welcome to return to the ED for re assessment if your symptoms are worsening or you have new concerns Coding Level of Care Code ED Production Broaching Machine Operator for Krishna Napoles
[2023-08-08] MEDS: LORazepam 2 mg/mL INJ 10 mL MDV IV (13:34)
[2023-08-08 13:35] LABS: Acetaminophen < 5.0 ug/mL (10-30); Alanine Aminotransferase 28 U/L (0-41); Albumin Level 4.2 g/dL (3.5-5.2); Alcohol Level < 10 mg/dL (0-10); Alkaline Phosphatase 87 U/L (40-130); Anion Gap 12.2 (5-19); Aspartate Amino Transferase 20 U/L (0-40); Blood Urea Nitrogen 17 mg/dL (6-20); Calcium 8.6 mg/dL (8.5-10.5); Carbon Dioxide 29 mmol/L (22-29); Chloride 103 mmol/L (98-107); Creatinine Clr Calc Pharmacy 100.3883; Glomerular Filtration Rate 80.4 mL/min (90-130); Glucose 157 mg/dL (65-115); Osmolality Calculated 297 mOsm/kg (285-295); Potassium 3.2 mmol/L (3.5-5.1); Salicylate 0.4 mg/dL (3-10); Sodium 141 mmol/L (136-145); Total Bilirubin 0.3 mg/dL (0.15-1.2); Total Protein 7.2 g/dL (6.6-8.7)
--- NOTE | 2023-08-08 13:37 | PC.NURSE ---
Pt's ex- states pt also takes stackers energy pill quite often
[2023-08-08 13:58] LABS: Amphetamines Screen Urine Negative (Negative); Barbiturates Screen Urine Negative (Negative); Benzodiazepines Screen Urine Negative (Negative); Cocaine Screen Urine Negative (Negative); Opiate Screen Urine Negative (Negative); PCP Screen Urine Negative (Negative); THC Screen Urine Positive (Negative)
[2023-08-08] MEDS: sodium chloride 0.9% 1,000 ML 999 ML IV (14:05)
[2023-08-08 14:06] LABS: Protein Urine Neg (Negative); Urine Appearance Clear (CLEAR); Urine Color Yellow (Yellow); pH Urine 6 (5-7)
[2023-08-08 14:07] LABS: Bilirubin Urine 1+ (Negative); Blood Urine Neg (Negative); Glucose Urine UA Norm (Normal); Ketones Urine Negative (Negative); Leukocyte Esterase Urine Negative (Negative); Nitrate Urine Negative (Negative); Urobilinogen Urine Neg (Negative)
[2023-08-08 14:08] LABS: Add Urine Culture? No; Bacteria Urine TRACE /hpf; Mucus Urine 2+ /hpf; RBC Urine 0-4 /hpf (0-2); Squamous Epithelial Cell Urine 0-4 /hpf (0-5); WBC Urine 0-4 /hpf (0-5)
[2023-08-08 14:15] VITALS: BP 177/103; PULSE 95; RESP 16; O2SAT 94
[2023-08-08 14:40] VITALS: PULSE 99; RESP 16; O2SAT 95
== END 2023-08-08 14:41 | disposition home or self-care (01) ==
PROVIDERS: Emergency Provider Emergency Medicine
DX: F41.0 Panic disorder [episodic paroxysmal anxiety] (principal); E86.0 Dehydration; T40.715A Adverse effect of cannabis, initial encounter; I10 Essential (primary) hypertension; R00.0 Tachycardia, unspecified; Z72.0 Tobacco use; Z79.891 Long term (current) use of opiate analgesic
CPT/HCPCS: 80053; 80306; 80307; 81001; 85025; 93005; 96374; 99284; J2060; J7030

== ENCOUNTER → 2024-03-19 14:59 | Outpatient (BNVA) | payer OTHER, MEDICAID, SELFPAY | PROVIDERS: Visit Provider Orthopaedic Surgery | DX: M54.9 Dorsalgia, unspecified (principal); Z98.890 Other specified postprocedural states | CPT/HCPCS: 72100; 99214 ==

== ENCOUNTER 2024-04-06 10:32 | Outpatient (CLI) | payer OTHER, MEDICAID, SELFPAY ==
--- NOTE | 2024-04-06 10:40 | MR_ITS ---
WS: [id number] MRI LUMBAR SPINE NONCONTRAST TECHNIQUE: Sagittal T1, T2 and STIR imaging. Axial T1 and T2 imaging. CLINICAL INFORMATION: back pain COMPARISON: MRI 04/02/2022 FINDINGS: Counting performed from the craniocervical junction. L5 is partially sacralized on the LEFT with a ru dimentary disc space. Recommend plain film correlation prior to surgical intervention. L1-L2: Slight retrolisthesis. Mild annular bulging. Mild facet arthropathy. Small RIGHT foraminal pro trusion with mild RIGHT foraminal narrowing. This appears progressed compared to previous. Mild LEFT foraminal narrowing with a small LEFT foraminal protrusion. Mild facet arthropathy. L2-L3: Mild annular bulging. Slight effacement of the ventral thecal sac. Narrowing LEFT subarticular recess. Hemilaminectomy defects. Spinal canal is patent. Mild disc bulging with slight narrowing of the LEFT greater than RIGHT subarticular recess similar to previous. Bilateral foraminal protrusions with mild bilateral foraminal narrowing. L3-L4: Slight retrolisthesis. Mild annular bulging. Slight narrowing of the RIGHT subarticular recess . Mild RIGHT foraminal narrowing. This appears unchanged. Mild facet arthropathy. L4-L5: Grade 1 anterolisthesis. Disc bulging combination with facet arthropathy and ligamentum flavum hypertrophy results in moderate central canal stenosis which appears slightly progressed. Grade 1 an terolisthesis appears slightly progressed. Impingement of the traversing RIGHT greater than LEFT L5 n erve roots. Moderate RIGHT and mild LEFT foraminal narrowing. Facet arthropathy with small bilateral facet effusions. L5-S1: Mild disc bulging with osteophytic ridging. Slight impingement on traversing LEFT greater than RIGHT S1 nerve roots appears unchanged. Mild facet arthropathy. Foramen are patent. Visualized pelvic bony structures: Normal. Paravertebral soft tissues: Normal. MR/MR lumbar spine wo con* [id number] IMPRESSION: 1. L5 is partially sacralized with rudimentary disc space. Recommend plain lanie m correlation prior to surgical intervention. 2. Postoperative changes RIGHT L2-3 hemilaminectomy. Spinal canal at this leve l has been decompressed with residual narrowing of the LEFT greater than RIGHT subarticular recess with similar disc bulging 3. Progressed moderate central canal stenosis L4-5 due to progressed grade 1 a nterolisthesis. Impingement of traversing RIGHT greater than LEFT L5 nerve root s. 4. Progressed small RIGHT foraminal protrusion L1-2 with slight contact of the exiting RIGHT L1 nerve root. 5. Small bilateral foraminal protrusions L2-3 with mild bilateral foraminal na rrowing. 6. Moderate RIGHT L3-L4 and RIGHT L4-L5 foraminal narrowing similar to previou s. 7. L4-L5 facet synovitis with bilateral facet effusions appears progressed.
== END 2024-04-06 10:33 | disposition home or self-care (01) ==
LOC: RAD 10:36
PROVIDERS: PCP Nurse Practitioner Family; Visit Provider Orthopaedic Surgery
DX: M43.16 Spondylolisthesis, lumbar region (principal); M48.061 Spinal stenosis, lumbar region without neurogenic claudication; M54.16 Radiculopathy, lumbar region; M51.26 Other intervertebral disc displacement, lumbar region; M99.63 Osseous and subluxation stenosis of intervertebral foramina of lumbar region; M47.816 Spondylosis without myelopathy or radiculopathy, lumbar region; Z98.890 Other specified postprocedural states
CPT/HCPCS: 72148

== ENCOUNTER → 2024-04-28 07:46 | Outpatient (BNVA) | payer OTHER, MEDICAID, SELFPAY | PROVIDERS: PCP Nurse Practitioner Family; Visit Provider Orthopaedic Surgery | DX: M51.17 Intervertebral disc disorders with radiculopathy, lumbosacral region (principal); M51.16 Intervertebral disc disorders with radiculopathy, lumbar region; M43.16 Spondylolisthesis, lumbar region | CPT/HCPCS: 36415; 80053; 81001; 85025; 99214 ==

== ENCOUNTER 2024-06-03 14:59 | Observation (INO) | payer MEDICARE, MEDICAID, SELFPAY ==
[2024-06-03] VITALS (26 sets, daily range): BP systolic 87–170; BP diastolic 41–114; PULSE 58–116; RESP 12–21; TEMP 36.2–36.9; O2SAT 88–100; BMI 29.0
[2024-06-03] MEDS: sodium chloride 0.9% 1,000 ML 30 ML IV (08:29)
--- NOTE | 2024-06-03 08:31 | ANES.PREANE2 ---
Pre-Anesthetic Assessment Height/Weight: Height 5 ft 9 in Weight 197 lb Temp Pulse Resp BP Pulse Ox O2 Del Method 98.1 F 96 18 170/114 95 Room Air 06/03/24 08:15 06/03/24 08:15 06/03/24 08:15 06/03/24 08:15 06/03/24 08:15 06/03/24 08:15 Preop Diagnosis: Lumbar disc disease Operation Date: 06/03/24 10:00 Proposed Procedures p Spinal Fusion PSF(Not Applicable) - Evan Brown DO s Posterior Lumbar Interbody Fusion PLIF(Not Applicable) - Evan Brown DO Was Beta Chase taken within 24 hours: N/A Was Clonidine taken within 24 hours: N/A Last intake: Intake Last Liquid Date 06/02/24 Last Liquid Time 22:00 Last Solid Date 06/02/24 Last Solid Time 22:00 Social Alcohol and No tobacco Prior smoker Exam alert, oriented x 3, clear to auscultation bilaterally and regular rate & rhythm Airway Submandibular: within normal limits Cervical ROM: within normal limits Mallampati: Class II Dentition: full Comments: Comments: From partial was left at home Anesthetic Plan ASA status: 2 Anesthesia: General Other: No prior issues with anesthesia NPO since yesterday evening Patient has a history of hypertension on losartan. Patient states that he is not consistent with his BP med. Preop BP 170/114 Prior smoker Labs 04/28/2024 reviewed and acceptable for procedure EKG sinus rhythm Patient is an active individual Plan for general anesthesia Medications/Allergies Home Medications ?Medication ?Instructions ?Recorded ?Confirmed ?Last Taken ?Type tizanidine 4 mg tablet 4 mg PO DAILY PRN Muscle Spasm 08/08/23 06/02/24 Unknown History bupropion HCl 300 mg 24 hr tablet, 300 mg PO DAILY 06/02/24 06/02/24 06/02/24 History extended release losartan 100 mg tablet 100 mg PO DAILY 06/03/24 06/03/24 Unknown History Allergies Allergy/AdvReac Type Severity Reaction Status Date / Time No Known Allergies Allergy Verified 04/28/24 07:56 Current Medications Generic Name Dose Route Start Last Admin Trade Name Freq PRN Reason Stop Dose Admin Sodium Chloride 1,000 mls @ 30 mls/hr 06/03/24 08:00 06/03/24 08:29 Sodium Chloride 0.9% IV 06/04/24 07:59 30 mls/hr .Q24H CIRILO Administration PFSH Anesthesia Medical History Hypertension Lumbar stenosis with neurogenic claudication Joint instability Spondylolisthesis of lumbar region Intervertebral disc disorder with radiculopathy of lumbosacral region Long-term current use of opiate analgesic Pain management contract signed Anxiety and depression Tobacco abuse Osteoarthritis, localized, knee Surgical History History of back surgery 09/07/20 Dr. Brown done laminectomy with facetectomy bilateral L5/S1 Arthropathy of shoulder region Hx of arthroscopy of shoulder (~11/05/13) RIGHT Hx of left knee surgery Hx of shoulder surgery Family History Father Hypertension Heart disease Denies family history of Anesthesia complication Bleeding disorder Social History Smoking and tobacco/nicotine status: never used tobacco/nicotine Second hand smoke exposure: No Alcohol intake: never Substance/Drug Use: never Marital status: service: No Current occupational status: unemployed Data Anesthesia Cardiac Studies: Sestamibi Stress Test (Cardiology) 01/08/20
--- NOTE | 2024-06-03 09:26 | W.PM.OPSFHP ---
Same Day Surgery H&P Indication for Procedure/HPI DATE OF PROCEDURE: June 03, 2024 CHIEF COMPLAINT/INDICATIONFOR SURGICAL PROCEDURE: Back and leg pain PREOP DIAGNOSIS: Lumbar disc disease; lumbar stenosis with neurogenic claudication PLANNED PROCEDURE: Operation Date: 06/03/24 10:00 Proposed Procedures p Spinal Fusion PSF(Not Applicable) - Evan Brown, DO s Posterior Lumbar Interbody Fusion PLIF(Not Applicable) - Evan Brown, DO Medications/Allergies* Home Medications ?Medication ?Instructions ?Recorded ?Confirmed ?Type tizanidine 4 mg tablet 4 mg PO DAILY PRN Muscle Spasm 08/08/23 06/02/24 History bupropion HCl 300 mg 24 hr tablet, 300 mg PO DAILY 06/02/24 06/02/24 History extended release losartan 100 mg tablet 100 mg PO DAILY 06/03/24 06/03/24 History Allergies/Adverse Reactions Allergy/AdvReac Type Severity Reaction Status Date / Time No Known Allergies Allergy Verified 04/28/24 07:56 Current Medications: Generic Name Dose Route Start Last Admin Trade Name Freq PRN Reason Stop Dose Admin Sodium Chloride 1,000 mls @ 30 mls/hr 06/03/24 08:00 06/03/24 08:29 Sodium Chloride 0.9% IV 06/04/24 07:59 30 mls/hr .Q24H CIRILO Administration Pertinent History/Comorbid Conditions* Medical History (Updated 08/16/23 @ 00:01 by RODDY Gee) Hypertension Lumbar stenosis with neurogenic claudication Joint instability Spondylolisthesis of lumbar region Intervertebral disc disorder with radiculopathy of lumbosacral region Long-term current use of opiate analgesic Pain management contract signed Anxiety and depression Tobacco abuse Osteoarthritis, localized, knee Surgical History (Updated 11/14/22 @ 11:42 by Shahid Dueñas PA-C) History of back surgery 09/07/20 Dr. Brown done laminectomy with facetectomy bilateral L5/S1 Arthropathy of shoulder region Hx of arthroscopy of shoulder (~11/05/13) RIGHT Hx of left knee surgery Hx of shoulder surgery Family History (Updated 05/14/19 @ 15:22 by Catherine Orozco RN) Heart disease Father Hypertension Father Denies family history of Anesthesia complication Bleeding disorder Social History Smoking and tobacco/nicotine status: never used tobacco/nicotine Second hand smoke exposure: No Alcohol intake: never Substance/Drug Use: never Marital status: service: No Current occupational status: unemployed Pertinent Exam Findings alert and oriented x 3 Recommendations Surgery/Procedure today Coding Level of Care Code Acute Code for Chg Fwd
[2024-06-03] MEDS: ceFAZolin 2,000 mg SDV 2000 MG IVP ×2 (09:40→16:55)
[2024-06-03] MEDS: lidocaine-epi 1% PF 1:200,000 30 mL SDV INJECTION (10:12)
[2024-06-03] MEDS: heparin, porcine 1,000 unit/mL INJ 10 mL 10000 UNIT IRRIGATION (10:12)
[2024-06-03] MEDS: vancomycin 1,000 MG SDV 1000 MG XX (10:48)
--- NOTE | 2024-06-03 13:06 | XR_ITS ---
WS: [id number] Exam: XR lumbar spine 2-3V* [id number] Date/Time of Exam: 06/03/2024 1:06 PM Reason For Exam: OR PICS Comparison 03/19/2024. AP and lateral intraoperative images of the lower lumbar and upper sacral spine demonstrate posterior fusion with pedicle screws and posterior rods from L4-S1. Disc spacer at L4-5. The fusion is in satisfactory alignment. No obvious hardware complication. XR/XR lumbar spine 2-3V* [id number] IMPRESSION: 1. Stable appearing spinal fusion from L4-S1 as noted above.
--- NOTE | 2024-06-03 13:12 | PM.OP ---
Operative Report Date of procedure: June 03, 2024 Pre-op diagnosis: Lumbar stenosis with neurogenic claudication L4-5 spondylolisthesis Post-op diagnosis: same Procedure done: 1. L4/5 Interbody fusion with posterolateral fusion 2. Instrumentation L4-S1 3. Insertion of Cage at L4/5 4. L4-5 laminectomy with facetectomies 5. L4-S1 laminectomy with facetectomies 6. use of autograft from same incision 7. allograft 8. Bone marrow aspirate from right iliac crest 9. Use of computer navigation/stereotactic for the spine Surgeon: Evan Brown DO Estimated blood loss (mL): 100 Procedure: 1. L4/5 Interbody fusion with posterolateral fusion 2. Instrumentation L4-S1 3. Insertion of Cage at L4/5 4. L4-5 laminectomy with facetectomies 5. L4-S1 laminectomy with facetectomies 6. use of autograft from same incision 7. allograft 8. Bone marrow aspirate from right iliac crest 9. Use of computer navigation/stereotactic for the spine Patient is brought to the operative suite. After undergoing anesthesia, the patient had neuro monitoring attached. Patient was then placed in the prone position on the Elias table. All areas of impingement were well-padded. Patient was then prepped and draped in the normal sterile fashion. Skin incision was then made over the L4-L5 disc space. Subperiosteal dissection was made out to the transverse processes of L4 and L5 and sacral ala of S1. Next attention was brought to the [employer] bone marrow aspirate kit was used to aspirate bone marrow aspirate. This was done by using the sharp probe to open up the bone. Aspiration was performed and then the blunt probe was then used to dissect down to through the bone tunnel. An aspirating well drawn back a millimeter approximately 20 cc of bone marrow aspirate was used. Admixed with the allograft and autograft bone that will be used. Next attention was brought to placing the computer navigation fiducial. The pins were placed in the right iliac crest. These pins were later removed at the end of the case. The fiducial was then attached to this. The C-arm was then brought in and spun around the patient. The information of the C-arm was then loaded the computer and this was later used for the placement of the pedicle screws. Next attention was brought to placing the pedicle screws. The technique for placing the pedicle screws was to use a drill followed by the gearshift probe. Followed by the ball probe to feel the superior inferior medial lateral panchal of the pedicles. Then placement of the screws. Was done at each pedicle. Screws were placed at L4 bilaterally and L5 bilaterally and S1 bilaterally. Extension was brought to decompressing the L5-S1 space. Laminectomy was performed at L5 using high-speed bur. The medial aspect of facet joints were taken down as well with a high-speed bur. The Kerrison rongeur was then used to take down the lamina as well as the medial aspect of facet joints. The S1 nerve root and L5 nerve roots were traced and found to be adequately decompressed. Ligamentum flavum was taken down. It was determined after using the navigation that the disc base was fused and it was partially sacralized at this point did not feel that a interbody cage was necessary at this level. Next attention was brought to performing the laminectomy ofL4. This was done using the high-speed bur Kerrisons and curettes. Once the lamina was removed and then attention was brought to performing a partial facetectomy on the contralateral side. This was done again using the high-speed bur curettes and Kerrisons. The ligamentum flavum was taken down bilaterally from L4 to L5. Attention was then brought to the facet on the ipsilateral side. The facet was taken down. The L5 nerve was decompressed as it passed around the L5 pedicle. The laminectomy was done for purposes of decompressing the nerve as well as placement of the cage. The L4 nerve was identified as it traversed through the L4 foramen. The thecal sac was identified and retracted. The L4/5 disc base was identified. Using a knife the disc base was opened. And then sequential brody were placed. The first shaver was a 6 and the last shaver was a 10. Using a pituitary and down going curette the endplates were scraped and disc material was removed from the space. Once adequate decompression of the disc base was felt to be had. Osteoamp sponge was packed into the anterior aspect of the disc base. Then a size 11 cage from [employer] was placed after packing osteoamp into the cage. While placing the cage the thecal sac and L5 nerve was protected. C arm was used to ensure that the cages placed in the appropriate position. Attention was then brought to attaching the rods to the screws placed in the L4 bilaterally and L5 bilaterally and S1 bilaterally. Caps were torqued into position. Locking the construct in place. Wound was copiously irrigated and then attention was brought to decorticating the facets and transverse processes laterally and sacral ala bilaterally. Bone that was taken down from the lamina was used along with osteoamp fibers and sponges were packed into the lateral gutters along the facet joints. This was done bilaterally. Wound was then closed in a layered fashion starting with the thoracolumbar fascia. 0-vicryl was used the sub cutaneous tissue was closed with 2-0 vicryl and skin with 4-0 monocryl. Glue was then used to seal the skin and a steril dressing was applied. Patient was then placed in the supine position. The endotracheal tube was removed and patient was transferred to the PACU in stable condition.
[2024-06-03] MEDS: fentaNYL 50 mcg/mL INJ 2mL IVP (14:12)
--- NOTE | 2024-06-03 15:00 | ANE.PACU2 ---
Inpatient post-anesthesia follow up: Airway intact: Yes Vital signs: Temperature 98.2 F Pulse Rate 78 Respiratory Rate 18 Blood Pressure 156/94 Pulse Oximetry 99 Oxygen Delivery Me thod Room Air Oxygen Flow Rate 8 Fraction of Inspir ed Oxygen Hydration adequate: Yes Nausea and vomiting: No Pain level: 1 Mental status: Baseline
[2024-06-03] MEDS: lactated ringers 1,000 ML 90 ML IV (15:20)
[2024-06-03] MEDS: HYDROcodone-acetaminophen 5-325 mg Tablet PO (16:55)
[2024-06-03] MEDS: docusate sodium 100 mg Capsule PO (16:55)
[2024-06-03] MEDS: morphine 4 mg/mL SDV 1 mL 2 MG IVP (20:59)
--- OUTSIDE RECORDS SUMMARY | 2024-06-04 01:30 | XMS_ITS | Encounter Summary ---
Author Organization [facility] Address [address] [place] [address] Care Team Providers Care Molding Fitter Name Role Phone Kalina Yanez EDGE DYER Primary Care Provider [phone] Encounter Details Date Type Department Care Team (Late st Contact Info) Description 10/29/2019 Ancillary Orders [facility] [address] [place] [phone] Determinations, Dis [address] [address] [place] [phone] Disability examination Social History Tobacco Use Types Packs/Day Years Used Date Smoking Tobacco: Never Smokeless Tobacco: Current Chew, Snuff Alcohol Use Standard Drinks/Week Comments Not Currently 0 (1 standard drink = 0.6 oz pur e alcohol) Sex and Gender Information Value Date Recorded Sex Assigned at Not on file 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 No / Unsure 10/29/2019 10:01 AM CDT documented as of this encounter Plan of Treatment Not on file documented as of this encounter Results * XR LUMBAR SPINE 2 OR 3 VW (10/29/2019 10:31 AM CDT) Anatomical Region Laterality Modality Spine Computed Radiogr aphy 10/29/2019 10:3 1 AM CDT Impressions 10/29/2019 3:27 PM CDT IMPRESSION: Please see below. Exam: XR LUMBAR SPINE 2 OR 3 VW Date/Time of Exam: 10/29/2019 10:31 AM Reason For Exam: ??See Diagnosis. Diagnosis: Disability examination. Comparison: 03/04/2018. CT lumbar spine 08/01/2018. Findings: Transitional segment labeled as L5. No significant vertebral body height loss. Stable slight retrolisthesis at L1-2 and a mild retrolisthesis at L2-3 with associated disc space height loss and mild endplate degenerative changes. Mild endplate degenerative changes at L3-4 and L4-5. Lower lumbar facet arthrosis. The CT scan better demonstrates a pseudarthrosis between the left L5 transverse process and upper sacrum. This represents a normal anatomic variant. IMPRESSION: 1. No acute abnormality or significant change. [id number] ? Narrative Procedure Note Demar Dey MD - 10/29/2019 IMPRESSION: Please see below. Exam: XR LUMBAR SPINE 2 OR 3 VW Date/Time of Exam: 10/29/2019 10:31 AM Reason For Exam: See Diagnosis. Diagnosis: Disability examination. Comparison: 03/04/2018. CT lumbar spine 08/01/2018. Findings: Transitional segment labeled as L5. No significant vertebral body height loss. Stable slight retrolisthesis at L1-2 and a mild retrolisthesis at L2-3 with associated disc space height loss and mild endplate degenerative changes. Mild endplate degenerative changes at L3-4 and L4-5. Lower lumbar facet arthrosis. The CT scan better demonstrates a pseudarthrosis between the left L5 transverse process and upper sacrum. This represents a normal anatomic variant. IMPRESSION: 1. No acute abnormality or significant change. [id number] us External Provider Mtnv DIAGNOSTIC IMAGING ORDERA BLES Final Result documented in this encounter Visit Diagnoses Diagnosis Disability examination Issue of medical certificate for disability examination Disability examination Issue of medical certificate for disability examination documented in this encounter Care Teams Molding Fitter Relationship Specialty Start Date End Date Kalina Yanez, NEAL [address] [place] [address] PCP - General Nurse Practitioner Family 11/23/19 documented as of this encounter
--- OUTSIDE RECORDS SUMMARY | 2024-06-04 01:30 | XMS_ITS | Clinical Summary ---
Author Organization [facility] Address [address] [place] [address] Care Team Providers Care Public Speaker Name Role Phone Kalina Yanez WATER QUALITY CONTROL ENGINEER Primary Care Provider Allergies No known active allergies Medications oxycodone HCl/acetaminophe n (OXYCODONE-ACETA MINOPHEN ORAL)Indications :15 mg twice daily Take 1 Tablet by mouth every 12 hours. Active tizanidine HCl (TIZANIDINE ORAL) Take by mouth. Active losartan potassium (LOSARTAN ORAL) Take 50 mg by mouth. 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 Gender Identity Not on file Sexual Orientation Not on file Occupation Industry Job Start Date Job End Date Not on file Not on file Not on file Not on file Last Filed Vital Signs Vital Sign Reading Time Taken Comments Blood Pressure 145/84 07/17/2020 1:43 PM CDT Pulse 73 07/17/2020 1:43 PM CDT Temperature 36.1 ??C (97 ??F) 07/17/2020 12:36 PM CDT Respiratory Rate 19 07/17/2020 1:43 PM CDT Oxygen Saturation 100% 07/17/2020 1:43 PM CDT Inhaled Oxygen Concentration - - Weight 98 kg (216 lb) 07/17/2020 12:36 PM CDT Height 175.3 cm (5' 9 ) 07/17/2020 12:36 PM CDT Body Mass Index 31.9 07/17/2020 12:36 PM CDT Plan of Treatment Health Maintenance Due Date Last Done Comments HEPATITIS B VACCINES (1 of 3 - 19+ 3-dose series) 02/25/1996 COLORECTAL SCREENING 2022 Colorectal Cancer Screening 2022 FIT-DNA Q 3 years 2022 FIT/FOBT Q 1 year 2022 Flex Sig/CT Colonography Q 5 years 2022 INFLUENZA VACCINE (#1) 2023 DTAP/TDAP/TD VACCINES (2 - T d or Tdap) 01/30/2029 01/30/2019 PNEUMOCOCCAL VACCINE 0-64 YEARS Aged Out No longer eligible based on patient's age to complete this topic Medical Devices Implanted Type Area Boilers Inspector Device Identifier Shelf Expiration Date Model / Serial / Lot Screw Prox [employer] Sys Ar-2290 - [id number] Implanted:Qty: 1 on 06/09/2014 by Dmitry Kennedy MD at [facility] Screw Right: Shoulder [employer] 03/14/2019 AR-2290 / / [id number] [place] [address] [place] Member Subscriber Plan / Payer (Ef fective 2018-Present) Name:Juan Morales Relation to Subscriber:Self Name:Juan Morales Payer ID:[id number] Group ID:Not on file Type:Medicaid Address: [address] [facility] WORKERS COMP WORKERS COMP * Guarantor: [id number] Account Type Relation to Patient Date of Phone Billing Address Corporate Other DISABILITY DETERMINATION DISABILITY DETERMINATION Care Teams Public Speaker Relationship Specialty Start Date End Date Kalina Yanez FNP [address] [place] [address] PCP - General Nurse Practitioner Family 11/23/19
--- OUTSIDE RECORDS SUMMARY | 2024-06-04 01:30 | XMS_ITS | Encounter Summary ---
Author Organization [facility] Address [address] [place] [address] Care Team Providers Care Production Welder Name Role Phone Kalina Yanez [facility] Primary Care Provider Encounter Details Date Type Department Care Team (Late st Contact Info) Description 03/04/2018 Ancillary Orders [facility] [place] [address] [place] [phone] Gabby Valentin, NEAL Milner [address] [place], [place] [address] Chronic back pain greater than 3 months duration Social History Tobacco Use Types Packs/Day Years Used Date Smoking Tobacco: Never Smokeless Tobacco: Current Chew Alcohol Use Standard Drinks/Week Comments No 0 (1 standard drink = 0.6 oz pur e alcohol) Sex and Gender Information Value Date Recorded Sex Assigned at Not on file Legal Sex Male 3:16 AM TALENT ACQUISITION ASSISTANT Gender Identity Not on file Sexual Orientation Not on file Occupation Industry Job Start Date Job End Date Not on file Not on file Not on file Not on file documented as of this encounter Plan of Treatment Not on file documented as of this encounter Results * XR LUMBAR SPINE 2 OR 3 VW (03/04/2018 8:51 AM TALENT ACQUISITION ASSISTANT) Anatomical Region Laterality Modality Spine Computed Radiogr aphy 03/04/2018 8:53 AM TALENT ACQUISITION ASSISTANT Impressions 03/04/2018 11:48 AM TALENT ACQUISITION ASSISTANT IMPRESSION: See below. Exam: XR LUMBAR SPINE 2 OR 3 VW Date/Time of Exam: 03/04/2018 8:51 AM Reason For Exam: See Diagnosis. Findings: There is mild retrolisthesis of L2 on L3 and L3 on L4. No evidence of fracture. No aggressive osseous lesion. SI joints are unremarkable. Punctate radiodensities overlie the right upper quadrant, likely within the transverse colon and may represent digested material. Narrative Procedure Note Michael Peck DO - 03/04/2018 IMPRESSION: See below. Exam: XR LUMBAR SPINE 2 OR 3 VW Date/Time of Exam: 03/04/2018 8:51 AM Reason For Exam: See Diagnosis. Findings: There is mild retrolisthesis of L2 on L3 and L3 on L4. No evidence of fracture. No aggressive osseous lesion. SI joints are unremarkable. Punctate radiodensities overlie the right upper quadrant, likely within the transverse colon and may represent digested material. Yonatan Pierre Sr., DRIVER LICENSE EXAMINER DIAGNOSTIC IMAGIN G ORDERABLES Final Result documented in this encounter Visit Diagnoses Diagnosis Chronic back pain greater than 3 months duration Backache, unspecified Chronic back pain greater than 3 months duration Backache, unspecified documented in this encounter Care Teams Production Welder Relationship Specialty Start Date End Date Kalina Yanez FNP [address] [place] [address] PCP - General Nurse Practitioner Family 11/23/19 documented as of this encounter
--- OUTSIDE RECORDS SUMMARY | 2024-06-04 01:30 | XMS_ITS | Clinical Summary ---
Author Organization [facility] Address [address] [place] [address] Care Team Providers Care Catering Service Manager Name Role Phone Misael Xiao MD Primary Care Provider [phone] [phone] Allergies No known active allergies Medications diclofenac sodium (VOLTAREN) 75 mg Tablet, Delayed Release (E.C.) TAKE 1 TABLET BY MOUTH TWICE DAILY WITH FOOD 3 Active tiZANidine (ZANAFLEX) 4 mg Tablet take 1 tablet by mouth at night 4 Active buprenorphine HCL (SUBUTEX) [address], [address] 1/2 (ONE-HALF) TABLET UNDER THE TONGUE THREE TIMES DAILY 4 Active losartan (COZAAR) 100 mg tabletIndicatio ns:HTN (hypertension), benign Take 1 tablet by mouth once daily 100 Tablet 3 4 Active Additional Information Patient not taking.Reported on 04/14/2024 FLUoxetine (PROzac) 10 mg capsuleIndicati ons:Moderate episode of recurrent major depressive disorder (CMS/HCC) Take 1 Capsule (10 mg) by mouth daily. 30 Capsule 1 4 Active Active Problems Problem Noted Date Diagnosed Date Hand trauma, left, subsequent encounter 03/16/20 22 Hand trauma, right, subsequent encounter 022 Encounters Date Type Department Care Team Description 05/07/2024 External Device Data ST[facility] ABSTRACTION Provider, Abstract 04/21/2024 External Device Data [facility] ABSTRACTION Provider, Abstract 04/14/2024 8:40 AM FARM OPERATIONS TECHNICAL DIRECTOR Video Visit [facility] [address] [place] [address] Gina, Sridevi Levine, NEAL Moderate episode of recurrent major depressive disorder (CMS/HCC) (Primary Dx); Chronic fatigue; BMI 30.0-30.9,adult; Chronic anemia 03/29/[address] [phone] Gina, Sridevi Levine, ALTERATION SPECIALIST HTN (hypertension), benign 03/18/2024 Patient Outreach [address] [phone] Misael Xiao MD Primary Care Outreach from Last 3 Months Immunizations Immunization Administration Dates Next Due (ADACEL/BOOSTRIX)(10 YR UP) TDAP VACCINE, 0.5ML, IM 01/30/2019 Family History Relation Name Status Comments Father Alive Mother Alive Social History Tobacco Use Types Packs/Day Years Used Date Smoking Tobacco: Never Smokeless Tobacco: Current Chew Tobacco Cessation:Ready to Q uit: No; Counseling Given: Yes Alcohol Use Standard Drinks/Week Comments Yes 0 (1 standard drink = 0.6 oz pur e alcohol) Feeling Safe Answer Date Recorded Are you in a relationship wi th someone who hurts you emotionally and/or physically? No 08/29/2022 Sex and Gender Information Value Date Recorded Sex Assigned at Not on file Legal Sex Male 12:44 PM FARM OPERATIONS TECHNICAL DIRECTOR Gender Identity Not on file Sexual Orientation Not on file Last Filed Vital Signs Vital Sign Reading Time Taken Comments Blood Pressure 158/94 02/20/2024 8:17 AM FARM OPERATIONS TECHNICAL DIRECTOR Pulse 80 02/20/2024 8:08 AM FARM OPERATIONS TECHNICAL DIRECTOR Temperature 36.7 ??C (98 ??F) 02/20/2024 8:08 AM FARM OPERATIONS TECHNICAL DIRECTOR Respiratory Rate 18 02/20/2024 8:08 AM FARM OPERATIONS TECHNICAL DIRECTOR Oxygen Saturation 100% 02/20/2024 8:08 AM FARM OPERATIONS TECHNICAL DIRECTOR Inhaled Oxygen Concentration - - Weight 88.5 kg (195 lb) 04/14/2024 8:19 AM FARM OPERATIONS TECHNICAL DIRECTOR Height 175.3 cm (5' 9 ) 04/14/2024 8:19 AM FARM OPERATIONS TECHNICAL DIRECTOR Body Mass Index 28.8 04/14/2024 8:19 AM FARM OPERATIONS TECHNICAL DIRECTOR Plan of Treatment Upcoming Encounters Date Type Department Care Team (Late st Contact Info) Description 12/02/2024 2:40 PM CDT Office Visit [facility] [address] [address] Misael Xiao MD [address] [place] [phone] Health Maintenance Due Date Last Done Comments FIT/ DNA Q 3 YEARS (AUTO ORDER) 1995 FIT/FOBT Q 1 YEAR (AUTO ORDER) 1995 FLEX SIG/CT COLONOGRAPHY Q 5 YEARS (AUTO ORDER) 1995 HEPATITIS B VACCINES (1 of 3 - 19+ 3-dose series) 02/25/1996 COLORECTAL CANCER SCREENING (AUTO ORDER) 2022 COLORECTAL SCREENING 2022 Colorectal Cancer Screening (AUTO ORDER) 2022 FIT-DNA Q 3 years 2022 FIT/FOBT Q 1 year 2022 Flex Sig/CT Colonography Q 5 years 2022 [place]) Preventative Visit/Annual Wellness Visit 04/15/2024 12/03/2023 Colorectal Cancer Screening 02/19/2025 Postponed from 2022 (Patient Refused) Pre-Diabetes and Diabetes Screening 01/15/2026 01/15/2023 DTAP/TDAP/TD VACCINES (2 - T d or Tdap) 01/30/2029 01/30/2019 INFLUENZA VACCINE Completed 02/20/2024, 01/15/2023, 01/15/2023 Medical Devices Implanted Type Area Business Services Manager Device Identifier Shelf Expiration Date Model / Serial / Lot Screw Prox [employer] Sys Ar-2290 - [id number] Implanted:Qty: 1 on 06/09/2014 by Dmitry Kennedy MD Screw Right: Shoulder [employer] 03/14/2019 AR-2290 / / [id number] Procedures Procedure Name Priority Date/Time Associated Diagnosis Comments HEMOGLOBIN A1C Routine 01/15/2023 8:46 AM CDT Encounter for general adult medical examination with abnormal findings from Last 3 Months or Most Recently Relevant to Health Maintenance Results * HEMOGLOBIN A1C (01/15/2023 8:46 AM CDT) HEMOGLOBIN A1C 5.0 <5.7 % of total Hgb [facility] Comment: For the purpose of screening for the presence of diabetes: <5.7% ? Consistent with the absence of diabetes 5.7-6.4% ?Consistent with increased risk for diabetes ?(prediabetes) > or =6.5% ??Consistent with diabetes This assay result is consistent with a decreased risk of diabetes. Currently, no consensus exists regarding use of hemoglobin A1c for diagnosis of diabetes in children. According to [place] Diabetes Association (ADA) guidelines, hemoglobin A1c <7.0% represents optimal control in non- diabetic patients. Different metrics may apply to specific patient populations. Standards of Medical Care in Diabetes(ADA). ?? ESTIMATED AVERAGE GLUCOSE (MG/DL) 97 mg/dL [facility] ESTIMATED AVERAGE GLUCOSE (MMOL/L) 5.4 mmol/L [employer] [facility] Comment: Test Performed at: [facility] [id number] [place] [address] ??[id number] Milton Robertson PhD Blood 01/15/2023 8:46 AM CDT 01/16/2023 4:39 AM CDT Addie Khan ALTERATION SPECIALIST CHEMISTRY ORDERABLES Final Result [facility] [phone] [facility] [address] [place] [address] from Last 3 Months or Most Recently Relevant to Health Maintenance Insurance MEDICAID [facility] DUAL COMPLETE CHOICE PPO DSNP [facility] [id number] Care Teams Catering Service Manager Relationship Specialty Start Date End Date Misael Xiao MD [address] [phone] PCP - General Family Practice 01/15/23
--- OUTSIDE RECORDS SUMMARY | 2024-06-04 01:31 | XMS_ITS | Continuity of Care Document ---
Author Organization [facility] Address [address] [place] [address] Phone Care Team Providers Care Front Counter Attendant Name Role Phone Epi Bernabe MD Unavailable Unavailable Allergies, Adverse Reactions, Alerts Substance Reaction Status Criticality No Known allergies Medications Medication Instructions Dosage Effective Dates (start - stop) Status Comments Mobic 15 mg tablet take 1 tablet (15MG) by oral route every day - Active Mobic 15 mg tablet take 1 tablet (15MG) by oral route every day - Active Procedures Procedure Date Office/outpatient visit,est, mod 2012 Drain/Inj Major Joint/Bursa(Shldr, Hip, Knee, Subacrom Bursa) Methylprednisolone Acetate 80 Mg 2012 Office/outpatient visit,est, mod 2012 Office/outpatient visit,[facility] 2012 Advance Directives Directive Yes / No Effective Date File Name No Information Encounters Encounter Description Practice Location Reason(s) For Visit Diagnoses Date Provider Providers Copied on Encounter [facility], [address] [place] [address], [id number], [phone] CORNELIO Gallego No Information - [address] [place], [place], [id number] , [place]. tel:[phone] [facility], [address] [place] [address], [id number], tel:[phone] CORNELIO Gallego No Information 2- [address] [place], [place], [id number] , [place]. tel:[phone] Office/outpat ient visit,[facility], [address] [place] [address], [id number], tel:[phone] CORNELIO Gallego right shoulder pain (chief complaint) Pain In Shoulder JointImpingment Syndrome [address] [place], [place], [id number] , [place]. tel: [phone] Office/outpat ient visit,[facility], [address] [place] [address], [id number], [place] tel:[phone] CORNELIO Gallego Pain In Shoulder JointSprain/Stra in Of Shoulder And Upper Arm, Unspecified [address] [place], [place], [id number] , [place]. tel: [phone] Office/outpat ient visit,[facility], [address] [place] [address], [id number], tel:[phone] CORNELIO Gallego PA Billing Review [address] [place], [place], [id number] , [place]. tel: [phone] Family History Family Member Type Diagnosis Age At Onset No Information Payers Payer name Insurance type Covered republican ID Oscar phillips(s) [employer] [id number] Social History Type Description Quantity Date Captured Comments Sex Male Smoking Status No Information Chief Complaint And Reason For Visit No Information Reason For Referral Reason For Referral No Information History Of Present Illness Encounter Date Complaint History Of Prese nt Illness right shoulder pain Functional Status Date Functional Assessmen t No Information Instructions Date Instruction Additional Infor mation No Information Assessments Type Assessment Date No Information Patient Care Teams Name Effective Dates (start - stop) Status Members No Information
--- OUTSIDE RECORDS SUMMARY | 2024-06-04 01:31 | XMS_ITS | Encounter Summary ---
Author Organization [facility] Address [address] [place] [address] Care Team Providers Care Casting Trucker Name Role Phone Kalina Yanez Primary Care Provider [phone] Encounter Details Date Type Department Care Team (Late st Contact Info) Description 04/11/2004 Outpatient Historical [facility] Joel Veiira MD NO ADDRESS ON FILE Social History Tobacco Use Types Packs/Day Years Used Date Smoking Tobacco: Never Assessed Sex and Gender Information Value Date Recorded Sex Assigned at Not on file Legal Sex Male 3:16 AM INDUSTRIAL MAINTENANCE MANAGER Gender Identity Not on file Sexual Orientation Not on file documented as of this encounter Plan of Treatment Not on file documented as of this encounter Visit Diagnoses Not on filedocumented in this encounter Care Teams Casting Trucker Relationship Specialty Start Date End Date Kalina Yanez FNP [address] [place] [address] PCP - General Nurse Practitioner Family 11/23/19 documented as of this encounter
--- OUTSIDE RECORDS SUMMARY | 2024-06-04 01:31 | XMS_ITS ---
Author Organization [facility] Address [address] [place] [address] Care Team Providers Care Occupational Therapist'S Assistant Name Role Phone Juanlamont Dmitriy Primary Care Provider Zee Jackson Unavailable [phone] Blanca Leary Unavailable [phone] REASON FOR VISIT 2 week f/u from restart Medications Medication SIG (Take, Route, Frequency, Duration) Notes Start Date End Date Status Losartan *Reorder from [facility] for eRx and Interaction Alerts* Active Oxycodone *Reorder from [facility] for eRx and Interaction Alerts* Active Buprenorphine HCl 8 MG 1 tablet under the tongue and allow to dissolve Sublingual twice a day for 15 days fill today on 05/13/2024 Active tiZANidine HCl 4 MG 1 tablet Orally Once a day for 30 days fill from last rx Active Problems Problem Type SNOMED Code ICD Code Onset Dates Problem Status W/U Status Risk Notes Problem Lumbosacral radiculopathy (2855942) L-S radiculopathy (M54.17) Active confirmed Problem Lumbosacral spondylosis (328429223) Lumbosacral spondylosis (M47.817) Active confirmed Encounters Encounter Location Date Provider Diagnosis [facility] [place] [address] [place] [address] 05/28/2024 Blanca Leary Opioid dependence, uncomplicated F11.20 ; Chronic pain syndrome G89.4 ; Degeneration of intervertebral disc of lumbar region with discogenic back pain M51.360 ; L-S radiculopathy M54.17 ; Lumbosacral spondylosis M47.817 and Drug induced constipation K59.03 Assessments Encounter Date Diagnosis (ICD Code) Assessment Notes Treatment Notes Treatment Clinical Notes Section Notes 05/28/2024 Opioid dependence, uncomplicated (ICD-10 - F11.20) The patient presents today via telemed for follow-up. He is doing well on his current medication regimen. He will have surgery with Dr. Brown on Saturday. He will continue his medication at present level and return to clinic in 1 month to monitor for treatment effectiveness and compliance. The patient continues with chronic pain requiring treatment to help restore function and improve quality of life. Risks of opioid therapy as well as interaction of opioids with alcohol, illicit drugs, muscle relaxers, and other sedative medications are reviewed briefly with patient again today. The patient has trialed all other reasonable treatment options and uses the medication to alleviate pain in order to remain active and rest with less pain. No clinically relevant medication side effects are noted. Last UDS and [place] PRECISION GRINDER reviewed today. Patient is advised that best long-term goals include increased activity, core strengthening, proper weight management, coping strategies, avoidance of painful triggers, and targeted interventional therapy. We will see the patient for routine follow up in accordance with all clinic policies. We did remind patient today of current guidelines to decrease opioid when possible. We will continue to stress nonopioid treatment. 05/28/2024 Chronic pain syndrome (ICD-10 - G89.4) 05/28/2024 Degeneration of intervertebral disc of lumbar region with discogenic back pain (ICD-10 - M51.360) 05/28/2024 L-S radiculopathy (ICD-10 - M54.17) 05/28/2024 Lumbosacral spondylosis (ICD-10 - M47.817) 05/28/2024 Drug induced constipation (ICD-10 - K59.03) Plan Of Treatment Medication Medication Name Sig Start Date Stop Date Notes Buprenorphine HCl 8 MG 1 tablet under th e tongue and allow to dissolve Sublingual twice a day for 15 days fill today on 05/13/2024 tiZANidine HCl 4 MG 1 tablet Orally Once a day for 30 days fill from last rx Treatment Notes Assessment Notes Opioid dependence, uncomplicated The pat ient presents today via telemed for follow-up. He is doing well on his current medication regimen. He will have surgery with Dr. Brown on Saturday. He will continue his medication at present level and return to clinic in 1 month to monitor for treatment effectiveness and compliance. The patient continues with chronic pain requiring treatment to help restore function and improve quality of life. Risks of opioid therapy as well as interaction of opioids with alcohol, illicit drugs, muscle relaxers, and other sedative medications are reviewed briefly with patient again today. The patient has trialed all other reasonable treatment options and uses the medication to alleviate pain in order to remain active and rest with less pain. No clinically relevant medication side effects are noted. Last UDS and [place] PRECISION GRINDER reviewed today. Patient is advised that best long-term goals include increased activity, core strengthening, proper weight management, coping strategies, avoidance of painful triggers, and targeted interventional therapy. We will see the patient for routine follow up in accordance with all clinic policies. We did remind patient today of current guidelines to decrease opioid when possible. We will continue to stress nonopioid treatment. Next Appt Details Provider Name:Blanca arreaga, 06/25/2024 08:15:00 AM, [address] [place], [address], Progress Notes * Juan MORALES MDOB:1975 ( 49 yo M)Acc No.[id number]:05/28/2024 Patient:?Juan MORALES Provider:?LIYAH Sandra :1975???Age:49 Y???Sex:Male Amish e:05/28/2024 Address:[address] [place] [address] Pcp:Dmitriy Thompson Subjective: * Chief Complaints: * ???1. 2 week f/u from restar t. * HPI: ???Opioid Assessment Tools:?Last Urine Drug Screen?shows accurate with prescribed medication , shows accurate with prescribed medication.?Today's Rapid Urine Drug Screen?shows accurate with prescribed medication , shows accurate with prescribed medication.?[place] Prescription Monitoring Program?found to be consistent with treatment history, reviewed today , found to be consistent with treatment history, reviewed today.?S-Program:?S-Program?Have you had any recent urges to use??No ?Have you taken more medications than what is prescribed to you??No ?Are you attending drug dependency counseling or NA meetings??No ?When did you last take your medication??03/06/2024 ???Provider Note:? Mr. Morales presents today for a telemed visit to continue maintenance phase buprenorphine therapy.? Visit lasted from [id number] He reports his truck broke down and he did not have a way to get to the clinic today.? He states he has his back surgery on Saturday with Dr. Brown. He does report that being back on the buprenorphine has helped with his pain. Patient has most recently been prescribed buprenorphine 8 mg twice daily that he found to be effective and to be well-tolerated.? He denies any cravings or urges to use.? He also continues with tizanidine 4 mg daily. Also again today discussed with patient the advisability of continuing this medication throughout his surgical treatment with supplementation as required. Again have offered to discuss this with the patient's surgeon upon request. He denies any changes in his health since we last seen him or any untoward side effects of medication. Again discussed with patient today that resumption of opioid medications is not felt to be in his best interest and will not be considered at this clinic. PDMP was reviewed and found to be compliant with care. Last UDS is consistent. He will continue his medication at present level and return to clinic in 1 months to monitor for treatment effectiveness and compliance as well as to continue maintenance phase buprenorphine therapy. * ROS:?General - Multi System:?Constitutional?Reports, fatigue.?Respiratory?Denies, wheezing, shortness of breath, cough, snoring.?Gastrointestinal?Denies, nausea, vomiting, constipation, abdominal pain.?Psychiatric?Denies depression, anxiety, or suicidal thoughts/actions.? * Medical History:?High blood pressure,. * Medications:?Taking Losartan , Notes to Pharmacist: *Reorder from [facility] for eRx and Interaction Alerts*, Taking Oxycodone , Notes to Pharmacist: *Reorder from [facility] for eRx and Interaction Alerts*, Taking Buprenorphine HCl 8 MG Tablet Sublingual 1 tablet under the tongue and allow to dissolve Sublingual twice a day , stop date 05/28/2024, Notes to Pharmacist: fill today on 05/13/2024, Taking tiZANidine HCl 4 MG Tablet 1 tablet Orally Once a day , Notes to Pharmacist: fill from last rx Objective: * Vitals:? Assessment: * Assessment: 1.?Opioid dependence, uncomp licated - F11.20 (Primary)???2.?Chronic pain syndrome - G89.4???3.?Degeneration of intervertebral disc of lumbar region with discogenic back pain - M51.360???4.?L-S radiculopathy - M54.17???5.?Lumbosacral spondylosis - M47.817???6.?Drug induced constipation - K59.03??? Plan: * Treatment: Forms: * Billing Information: * Visit Code:? * Procedure Codes:? * Electronic signature of Lacie Leary APRN on 06/04/2024 at 01:30 AM FILLER SIFTER HELPER Sign off status: Pending * Provider:?LIYAH Sandra Date:? Generated for Stephanie glover/Mary Jane/eTransmitting on:?06/04/2024 01:30 AM FILLER SIFTER HELPER History and Physical Notes * HPI (History of Present Illness) Category Sub-Category Detail Notes Category Not es Opioid Assessment Tools Last Urine Drug Screen shows accurate with prescribed medication , shows accurate with prescribed medication Today's Rapid Urine Drug Screen shows ac curate with prescribed medication , shows accurate with prescribed medication [place] Prescription Monitoring Program found to be consistent with treatment history, reviewed today , found to be consistent with treatment history, reviewed today S-Program S-Program Have you had any recent urges to use ?: No Have you taken more medications than wha t is prescribed to you?: No Are you attending drug dependency hussaine jude or JAMES meetings?: No When did you last take your medication?: 03/06/2024
--- OUTSIDE RECORDS SUMMARY | 2024-06-04 01:31 | XMS_ITS ---
Author Organization [facility] Address [address] [place] [address] Care Team Providers Care Mixer Whipped Topping Name Role Phone Balbirtommie Dmitriy Primary Care Provider Zee Jackson [phone] Encounters Encounter Location Date Provider Diagnosis [facility] [address] [place] [address] 05/28/2024 Zee Kong Plan Of Treatment Next Appt Details Provider Name:Blanca arreaga, 06/25/2024 08:15:00 AM, [address] [place], [address], Progress Notes * Juan MORALES MDOB:1975 ( 49 yo M)Acc No.[id number]:05/28/2024 Patient:?ANDREW Juan Sehlby :1975???Age:49 Y???Sex:Male Address:[address] [place] [address], [address] * true * Date:? Generated for Leylai adalberto/Mary Jane/eTransmitting on:?06/04/2024 01:30 AM JOINT MAKER MACHINE
--- OUTSIDE RECORDS SUMMARY | 2024-06-04 01:31 | XMS_ITS ---
Author Organization [facility] Address [address] [place] [address] Care Team Providers Care Clerk Checker Name Role Phone Jay Dmitriy Primary Care Provider Zee Jackson Unavailable [phone] REASON FOR VISIT refill Medications Medication SIG (Take, Route, Frequency, Duration) Notes Start Date End Date Status Buprenorphine HCl 8 MG 0.5 tablet under the tongue and allow to dissolve Sublingual twice a day for 30 days Fill on 05-28-24 05/28/2024 06/27/2024 Active Encounters Encounter Location Date Provider Diagnosis [facility] [address] [place] [address] 05/28/2024 Zee Kong Opioid dependence, uncomplicated F11.20 Assessments Encounter Date Diagnosis (ICD Code) Assessment Notes Treatment Notes Treatment Clinical Notes Section Notes 05/28/2024 Opioid dependence, uncomplicated (ICD-10 - F11.20) Plan Of Treatment Medication Medication Name Sig Start Date Stop Date Notes Buprenorphine HCl 8 MG 0.5 tablet under the tongue and allow to dissolve Sublingual twice a day for 30 days 05/28/2024 06/27/2024 Fill on 05-28-24 Next Appt Details Provider Name:Blanca arreaga, 06/25/2024 08:15:00 AM, [address] [place], [address], Progress Notes * Juan JANE MDOB:1975 ( 49 yo M)Acc No.[id number]:05/28/2024 Patient:?ANDREW Juan Shelby :1975???Age:49 Y???Sex:Male Address:[address] [place] [address] [address] [place], [address] * Refills? Continue Buprenorphine HCl Tablet Sublingual, 8 MG, Sublingual, 30 Tablet, 0.5 tablet under the tongue and allow to dissolve, twice a day, 30 days, Refills=0 * true * Date:? 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
[2024-06-04] MEDS: lactated ringers 1,000 ML 90 ML IV (02:49)
[2024-06-04 02:50] VITALS: RESP 18
[2024-06-04] MEDS: morphine 4 mg/mL SDV 1 mL 2 MG IVP (02:50)
[2024-06-04 04:00] VITALS: BP 135/72; PULSE 92; RESP 18; TEMP 37.1; O2SAT 95
[2024-06-04] MEDS: ceFAZolin 2,000 mg SDV 2000 MG IVP (05:21)
[2024-06-04] MEDS: HYDROcodone-acetaminophen 5-325 mg Tablet PO ×2 (05:26→11:58)
[2024-06-04 08:11] VITALS: BP 156/70; PULSE 78; RESP 18; TEMP 36.6; O2SAT 95
[2024-06-04] MEDS: docusate sodium 100 mg Capsule PO (08:41)
--- NOTE | 2024-06-04 08:46 | P.PN_ITS ---
Subjective Subjective: Patient is in pain in his low back. Is got up to go walk to the bathroom. At this point we will keep him 1 more day in the hospital. Vitals/I&O/Wt Last Vital Signs Temp 97.8 F 06/04/24 08:11 Pulse 78 06/04/24 08:11 Resp 18 06/04/24 08:11 BP 156/70 06/04/24 08:11 Pulse Ox 95 06/04/24 08:11 O2 Del Method Room Air 06/04/24 08:11 O2 Flow Rate 8 06/03/24 13:44 06/03/24 06/04/24 06/04/24 22:59 06:59 14:59 Intake Total 360 / 960 1480 / 2440 Output Total 700 / 1000 Balance -340 / -40 1480 / 1440 Weight last 48 hrs Weight 197 lb 8 oz Weight 197 lb Weight 197 lb Physical Exam Narrative: 5 5 strength bilateral lower extremities . Sitting in bed pain is controlled however when he moves is somewhat painful. Urinary Catheter Management: Coleman: Cath Placed During This Visit: yes Urinary Catheter Date of Insertion: 06/03/24 Urinary Catheter Time of Insertion: 09:55 A&P Assessment and plan (1) Status post lumbar spinal fusion: Postop day #1 posterior lumbar interbody fusion. At this point we will keep him 1 more day to get some physical therapy plan on discharge tomorrow. Will pull his drain Hep-Lock IV PDMP PDMP Reviewed: Not Reviewed Attestations Medical Necessity Statement*: Pain control Coding Level of Care Code Acute Code for Chg Fwd Diagnoses Status post lumbar spinal fusion Z98.1
--- NOTE | 2024-06-04 09:46 | PC.NURSE ---
Pt refused morning dose of Wellbutrin and Losartan stating he does not take these medications any longer. He also sees Dr. Kong with pain management in [facility] and they had concerns about his home pain meds not being resumed here. This nurse spoke to Dr. Thomas nurse per pt, Nuris, to discuss her concerns ([phone]) This nurse provided Nuris with Dr. Hernández clinic number as she needed to discuss paperwork she had faxed over there.
[2024-06-04] MEDS: tizanidine 4 mg Tablet PO (11:00)
[2024-06-04] MEDS: ketorolac 30 mg/mL INJ IVP (11:00)
--- NOTE | 2024-06-04 11:21 | P.DS_ITS ---
Discharge Providers Date of Admission: 06/03/24 14:59 Date of Discharge: June 04, 2024 Attending Provider at Admission: Evan Brown DO Attending Provider at Discharge: Evan Brown DO Primary Care Provider: Sridevi Fuentes Diagnoses at Discharge Discharge Diagnosis (1) Status post lumbar spinal fusion: Status: Acute Reason for Visit Reason for Visit: M51.16 Physical Exam Urinary Catheter Management: Coleman: Cath Placed During This Visit: yes Urinary Catheter Date of Insertion: 06/03/24 Urinary Catheter Time of Insertion: 09:55 Discharge Data Studies Completed and Pending Completed Studies During Hospitalization Category Date Time Status XR lumbar spine 2-3V* 44793 Routine Exams 06/03/24 13:06 Completed Pending at discharge Category Date Time Status C-arm Fluoroscopy 39400 Routine Exams 06/03/24 09:27 Ordered Radiology Impressions Lumbar Spine X-Ray 06/03/24 13:06 IMPRESSION: 1. Stable appearing spinal fusion from L4-S1 as noted above. Vitals Last Vital Signs Temp 97.8 F 06/04/24 08:11 Pulse 78 06/04/24 08:11 Resp 18 06/04/24 08:11 BP 156/70 06/04/24 08:11 Pulse Ox 95 06/04/24 08:11 O2 Del Method Room Air 06/04/24 08:11 O2 Flow Rate 8 06/03/24 13:44 Discharge Plan Discharge Patient Disposition: Home Condition: Stable Prescriptions: Continued (DME) Bone Growth Stimulator See Rx Instructions .Route .MEDSUPPLY Qty: 1 0RF Rx Instructions: As directed bupropion HCl 300 mg tablet extended release 24 hr 300 mg PO DAILY losartan 100 mg tablet 100 mg PO DAILY tizanidine 4 mg tablet 4 mg PO DAILY PRN (Reason: Muscle Spasm) Discharge Orders: Discharge Order (Routine); Ordered 06/04/24 Ordered By: Evan Brown Discharge Diet: Advance as tolerated Discharge Activity: Limit activity as instructed Patient Instructions: Acute Wound Care (DC), Opioid Safety, Post Anesthesia Care Activity Restrictions/Additional Instructions: Thank you for [facility] for your care! The following is a list of instructions, from your provider, to follow upon your discharge to ensure you have the optimal recovery from your recent injury orsurgery. Follow-up care is a esqueda part of your treatment and safety. Be sure to make and go to all appointments, and call your doctor if you are having problems. If you do not already have a follow-up appointment made, call Dr. Brown office in the next 1-3 days to make follow up appointment for 1 weeks at [phone]. It is also a good idea to know your test results and keep a list of the medicines you take. Medications will be prescribed for you at your provider's discretion. These medications are to be used as instructed; if they are taken more often that prescribed they will not be refilled early and in most cases will not be refilled at all. > When a refill is needed,you should contact pedro hester 2-3 business days before your prescription runs out. Medications will NOT be refilled by container washer machine providers after hours! > Many pain medications contain Tylenol (Acetaminophen). Do not consume more than 4,000 mg of Tylenol per day in total with any combination ofmedications. > Pain medications can cause constipation. Please use an over the counter stool softener as directed, while taking pain medications. Consulty our local pharmacist with questions or recommendations on stool softeners. If constipation persists, contact our office or your primary care provider. > While under our care,you are not to receive pain medications or other controlled substances from any other provider unless our office is notified and approves. Any attempts to do so will result in refusal to prescribe any further pain medications and possible dismissal from our practice. ? Follow-up in 1 week ? Showering is permitted, however we ask that you do not take a bath, sit in a whirlpool / Jacuzzi, or go swimming for 1 month. For only the first 2 days after surgery, lt wilt be necessary for you to cover your wound/dressing with plastic and tape to keep it dry. ? Walking is essential for the healing process after surgery. We would like you to slowly advance your walking. This should be done on relatively flat clear ground (inside or out) or can be done on a treadmill. Hiwot mber this goal does not have to happen all at once, slowly increase your distance and duration. This can be broken into more more than one walk per day as tolerated. Patients who walk as directed after surgery rarely require Physical Therapy. In the unlikely event this issue arises your provider will direct hospital staff to make the appropriate arrangements. ? No lifting over 5 pounds {a gallon of milk) or bending/twisting until further notice. Each of these activities places an unnecessary amount of stress onto the body and can impede the delicate healing process. > Instead of bending at the waist, keep your back straight and bend at the knees. > Instead of twisting your torso, keep your back straight and turn your entire body with your feet. ? You may sleep in any position which makes you comfortable. Many patients find comfort sleeping in a reclining chair. It is not abnormal to have difficulty sleeping for the first several weeks following your surgery. We recommend trying Benadry! or Tylenol PM as directed to help with your sleeping difficulties. Both medications are over the counter and available withoutprescription. ? NO SMOKING!!! Smoking dramatically increases the probability of developing postoperative wound infections. ? Common complaints after lumbar and/or thoracic spine surgery include, but are not limited to: numbness and/or tingling in the legs, pain around the incision and surrounding tissues, muscle spasms, or stiffness of the middle to low back. Contact our office if these symptoms persist or if an acute change occurs. ? No driving for the first 3-5days, and not while taking narcotics until seen at your follow-up appointment and cleared. There are no restrictions for riding on short trips, however if you take a longer trip, arrangements should be made to make regular stops to get out of the vehicle and stretch . ? Swelling is an unfortunate event that will take place with any surgery and is the primary source of your postoperative discomfort. While walking and regular approved activities helps control inflammation, there are additional steps you can take to minimizeswelling. > Place ice over the surgical site and surrounding tissue for twenty minutes, followed by applying a low/medium heat (heating pad) for an additional twenty minutes every 1-2 hours as needed for painrelief. > You may use of over the counter anti-inflammatory medications (Ibuprofen, Motrin, Aleve, Advil, etc) as directed on the package label. These types of medicines wm significantly reduce the amount of discomfort you experience after surgery from swelling. It should be noted that if you have and allergy to any of these medications, or a history of ulcers or kidney disease you should consult you primary care provider prior to starting these medications. Discharge Attestations Time Spent in Discharge Care*: less than 30 min Quality Metrics Clinical Quality Measures [ No reported AMI, CVA or VTE this stay] Coding Level of Care Code Acute Code for Chg Fwd Diagnoses Status post lumbar spinal fusion Z98.1
--- NOTE | 2024-06-04 12:01 | PC.NURSE ---
This nurse removed patients hemovac drain at 1200. Incision site was then covered with sterile gauze and a tegaderm. Silverlon dressing was replaced as blood had seeped through. Pt tolerated well.
[2024-06-04 12:12] VITALS: BP 156/94; PULSE 78; RESP 18; TEMP 36.8; O2SAT 99
[2024-06-04 13:06] VITALS: BP 156/94; PULSE 78; O2SAT 99
--- NOTE | 2024-06-04 13:08 | PC.NURSE ---
Pain meds are being filled by Dr. Kong in [place].
== END 2024-06-04 13:08 | disposition home or self-care (01) ==
LOC: MEDSURG 23:27
PROVIDERS: Admitting Provider Orthopaedic Surgery; PCP Nurse Practitioner Family; Visit Provider Orthopaedic Surgery
PROC: (CPT 20936; principal; 2024-06-03 10:00)
PROC: (CPT 22612; 2024-06-03 10:00)
DX: M48.062 Spinal stenosis, lumbar region with neurogenic claudication (principal); Z79.899 Other long term (current) drug therapy; Z87.891 Personal history of nicotine dependence; I10 Essential (primary) hypertension; F41.9 Anxiety disorder, unspecified; F32.A Depression, unspecified
CPT/HCPCS: 20936; 22842; 22633; 22614; 63052; 63053; 22853; 20939; 20930; 51702; 72100; 76000; 97116; 97161; C1713; C9359; G0378; J0330; J0690; J1171; J1644; J1885; J2250; J2270; J2371; J2704; J3010; J3370; J3490; J7030; J7120

== ENCOUNTER → 2024-06-16 08:34 | Outpatient (BNVA) | payer MEDICARE, MEDICAID, SELFPAY | PROVIDERS: PCP Nurse Practitioner Family; Visit Provider Orthopaedic Surgery | DX: Z98.1 Arthrodesis status (principal) | CPT/HCPCS: 99024 ==